=== PATIENT | female | born 1975 | race Caucasian/White ===

== ENCOUNTER 2016-07-12 16:02 | Emergency (ER) | payer OTHER ==
[2016-07-12 17:47] LABS: Hematocrit 50 % (35-47); Hemoglobin 16.3 g/dl (12.0-16.0); Mean Corpuscular HGB Conc 33 g/dl (31-36); Mean Corpuscular Hemoglobin 28 pg (27-31); Mean Corpuscular Volume 85 fL (80-97); Mean Platelet Volume 9 um3 (7.4-10.4); Red Blood Count 5.81 10^6/ul (4.0-5.4); Red Cell Distribution Width 16 % (10.5-15); White Blood Count 10.7 10^3/ul (3.5-10.8)
[2016-07-12 17:54] LABS: ALT 14 U/L (7-52); AST 24 U/L (13-39); Albumin 4.9 g/dL (3.2-5.2); Alkaline Phosphatase 53 U/L (34-104); Anion Gap 10 mmol/L (2-11); BUN/Creatinine Ratio 17.6 (8-20); Blood Urea Nitrogen 15 mg/dL (6-24); C Reactive Protein < 1.00 mg/L (< 5.00); CO2 Carbon Dioxide 26 mmol/L (22-32); Calcium 9.6 mg/dL (8.6-10.3); Chloride 92 mmol/L (101-111); EGFR African American 95.8 (>60); EGFR Non-African American 74.5 (>60); Globulin 3.6 g/dL (2-4); Glucose 85 mg/dL (70-100); Lipase 14 U/L (11.0-82.0); Sodium 128 mmol/L (133-145); Total Protein 8.5 g/dL (6.4-8.9)
[2016-07-12] MEDS ORDERED: NS 0.9% 1000 ML* 1,000 ML IV ONE ×2 (17:57→20:15)
[2016-07-12] MEDS ORDERED: Metoclopramide IV* 5 MG/ML 2 ML VIAL IV ONE (17:57)
[2016-07-12 20:31] LABS: Magnesium 1.7 mg/dL (1.9-2.7)
[2016-07-12] MEDS ORDERED: Magnesium Sulfate 1 GM IV* 1 GM/100 ML BAG IV ONE (20:55)
[2016-07-12 21:19] VITALS: BP 101/79
--- NOTE | 2016-07-13 23:35 | ED ---
Nikky Flores Erika, scribed for Ministerio Kwong MD on 07/12/16 at 1854 . GI/ HPI - HPI Summary HPI Summary: Patient is a 41-year-old female presenting to the ED with a CC of nausea and vomiting since 07/08/2016. She reports that she has been unable to tolerate PO intake in this time. Symptoms were not alleviated by Zofran. Pt states she has not urinated today. She denies myalgias. Hx MEN2A. - History of Current Complaint Chief Complaint: EDNauseaVomitDiarrh Time Seen by Provider: 07/12/16 17:50 Stated Complaint: VOMITTING Hx Obtained From: Patient Onset/Duration: Started Days Ago, Atraumatic, Still Present Timing: Constant Severity: Moderate Associated Signs and Symptoms: Positive: Nausea, Vomiting, Change in Appetite Aggravating Factor(s): Nothing Alleviating Factor(s): Nothing - Additional Pertinent History Primary Care Physician: TRAE - Allergy/Home Medications Allergies/Adverse Reactions: Allergies Allergy/AdvReac Type Severity Reaction Status Date / Time Metronidazole [From Flagyl] AdvReac Intermediate Pain Verified 05/27/15 14:43 PMH/Surg Hx/FS Hx/Imm Hx Endocrine/Hematology History: Reports: Hx Thyroid Disease, Other Endocrine/ Hematological Disorders - pheochromocytoma, multiple endocrine neoplasia type 2a (mother) Denies: Hx Diabetes, Hx Anemia Cardiovascular History: Denies: Hx Congestive Heart Failure, Hx Hypertension, Hx Pacemaker/ICD Respiratory History: Denies: Hx Asthma GI History: Reports: Other GI Disorders - Hx of gastroenteritis Denies: Hx Crohn's Disease, Hx Diverticulosis, Hx Gall Bladder Disease, Hx Gastroesophageal Reflux Disease, Hx Gastrointestinal Bleed, Hx Irritable Bowel, Hx Jaundice, Hx Ulcer History: Denies: Hx Acute Renal Failure, Hx Dialysis, Hx Kidney Infection, Hx Kidney Stones, Hx Renal Disease Musculoskeletal History: Reports: Hx Back Problems - herniated discs Denies: Hx Arthritis, Hx Osteoporosis, Hx Scoliosis Sensory History: Reports: Hx Contacts or Glasses Denies: Hx Hearing Aid Opthamlomology History: Reports: Hx Contacts or Glasses Neurological History: Denies: Hx Headaches, Hx Migraine, Hx Seizures Psychiatric History: Reports: Hx Depression Denies: Hx Anxiety, Hx Panic Disorder - Cancer History Cancer Type, Location and Year: thyroid, age 23. (multi endocrine neoplasic type 2a)MEN2A, age 24 Hx Chemotherapy: No Hx Radiation Therapy: No - Surgical History Surgery Procedure, Year, and Place: . thyroidectomy. parathyroidectomy. left and right adrenal gland removed. lymph node dissections. right adrenal gland removed. right knee surgery Hx Anesthesia Reactions: No - Immunization History Date of Tetanus Vaccine: PT STATES UNSURE Date of Influenza Vaccine: Fall 2014 Infectious Disease History: Reports: Hx Clostridium Difficile Denies: Hx Hepatitis, Hx of Known/Suspected MRSA, Hx Shingles, Hx Tuberculosis, Traveled Outside the [place] in Last 30 Days - Family History Known Family History: Positive: Other - multiple endocrine neoplasia type 2a ( mother) Negative: Cardiac Disease, Hypertension, Diabetes - Social History Alcohol Use: None Hx Substance Use: No Substance Use Type: Reports: None Hx Tobacco Use: Yes Smoking Status (MU): Former Smoker Type: Cigarettes Have You Smoked in the Last Year: No Review of Systems Positive: Vomiting, Nausea Genitourinary: Other - decreased urination Negative: Myalgia All Other Systems Reviewed And Are Negative: Yes Physical Exam Triage Information Reviewed: Yes Vital Signs On Initial Exam: Initial Vitals Temp Pulse Resp BP Pulse Ox 98.2 F 80 18 110/79 99 07/12/16 16:10 07/12/16 16:10 07/12/16 16:10 07/12/16 16:10 07/12/16 16:10 Vital Signs Reviewed: Yes Appearance: Positive: Well-Appearing, No Pain Distress Skin: Positive: Warm, Skin Color Reflects Adequate Perfusion, Dry Head/Face: Positive: Normal Head/Face Inspection Eyes: Positive: Normal ENT: Positive: Other - Dry oral mucosa Neck: Positive: Supple, Nontender Respiratory/Lung Sounds: Positive: Clear to Auscultation, Breath Sounds Present Cardiovascular: Positive: RRR Abdomen Description: Positive: Nontender, Soft Bowel Sounds: Positive: Present Musculoskeletal: Positive: Normal Neurological: Positive: Normal Psychiatric: Positive: Affect/Mood Appropriate Diagnostics - Vital Signs Vital Signs Temp Pulse Resp BP Pulse Ox 07/12/16 16:10 98.2 F 80 18 110/79 99 - Laboratory Lab Results: Lab Results 07/12/16 Range/Units 17:35 WBC 10.7 (3.5-10.8) 10^3/ul RBC 5.81 H (4.0-5.4) 10^6/ul Hgb 16.3 H (12.0-16.0) g/dl Hct 50 H (35-47) % MCV 85 (80-97) fL MCH 28 (27-31) pg MCHC 33 (31-36) g/dl RDW 16 H (10.5-15) % Plt Count 253 (150-450) 10^3/ul MPV 9 (7.4-10.4) um3 Neut % (Auto) 75.3 (38-83) % Lymph % (Auto) 16.1 L (25-47) % [place] % (Auto) 5.9 (1-9) % Eos % (Auto) 1.3 (0-6) % Baso % (Auto) 1.4 (0-2) % Absolute Neuts (auto) 8.0 H (1.5-7.7) 10^3/ul Absolute Lymphs (auto) 1.7 (1.0-4.8) 10^3/ul Absolute Monos (auto) 0.6 (0-0.8) 10^3/ul Absolute Eos (auto) 0.1 (0-0.6) 10^3/ul Absolute Basos (auto) 0.2 (0-0.2) 10^3/ul Absolute Nucleated RBC 0 10^3/ul Nucleated RBC % 0 Result Diagrams: 07/12/16 17:35 07/12/16 17:30 Lab Statement: Any lab studies that have been ordered have been reviewed, and results considered in the medical decision making process. - EKG 17:05 Cardiac Rate: NL - at 73 bpm EKG Rhythm: Sinus Rhythm EKG Interpretation: Diffuse T wave inversions 20:31 EKG Interpretation: Borderline sinus bradycardia at 63 bpm. Diffuse TWI Re-Evaluation - Re-Evaluation First Eval Re-Evaluation Time: 20:58 Comment: Discussed EKG and blood work GIGU Course/Dx - Course Course Of Treatment: Ciaran Joaquin presented with N/V for several days and was concerned about hypocalcemia that she has had before although she admitted that she had not had any tetany-type symptoms. She was found to have diffuse inverted T-waves on ecg. Her TSH was high and hypothyroidism can cause inverted T's as well as N/V. She has been keeping her synthroid down so I asked her to increase it and F/U with her PMD. - Diagnoses Provider Diagnoses: Hypothyroidism - Physician Notifications Discussed Care Of Patient With: Dr. Quinones (cardiology) at 20:05 - discussed patient care. Dr. Pride (hospitalist) at 20:30 - discussed case and pt EKGs. Pt does not require admission at this time Discharge - Discharge Plan Condition: Stable Disposition: HOME Patient Education Materials: Hypothyroidism (ED) Referrals: Romero Francis MD [Medical Doctor] - Additional Instructions: Please take 2 levothyroxine on Friday and 2 on Friday. Follow up with Dr. Francis on Friday. The documentation as recorded by the Nikky garcia Erika accurately reflects the service I personally performed and the decisions made by me, Ministerio Kwong MD.
== END 2016-07-12 21:19 | disposition home or self-care (01) ==
LOC: ED 16:02
DX: E03.9 Hypothyroidism, unspecified (principal); R11.2 Nausea with vomiting, unspecified; Z87.891 Personal history of nicotine dependence
CPT/HCPCS: 36415; 80053; 83605; 83690; 83735; 84439; 84443; 84484; 85025; 86140; 93005; 96361; 96374; 99283; J2765; J3475

== ENCOUNTER 2017-05-27 15:14 | Observation (INO) | payer OTHER ==
[2017-05-27 16:19] LABS: ABS Basophils 0.2 10^3/ul (0-0.2); ABS Eosinophils 0.1 10^3/ul (0-0.6); ABS Lymphocytes 1.8 10^3/ul (1.0-4.8); ABS Monocytes 0.6 10^3/ul (0-0.8); ABS Neutrophils 10.6 10^3/ul (1.5-7.7); ABS Nucleated RBC 0 10^3/ul; Eosinophil % 0.5 % (0-6); Hematocrit 35 % (35-47); Hemoglobin 11.6 g/dl (12.0-16.0); Mean Corpuscular HGB Conc 33 g/dl (31-36); Mean Corpuscular Hemoglobin 29 pg (27-31); Mean Corpuscular Volume 86 fL (80-97); Mean Platelet Volume 7 um3 (7.4-10.4); Nucleated Red Blood Cells % 0; Platelet Count 496 10^3/ul (150-450); Red Blood Count 4.06 10^6/ul (4.0-5.4); Red Cell Distribution Width 14 % (10.5-15); White Blood Count 13.2 10^3/ul (3.5-10.8)
[2017-05-27 16:27] LABS: EGFR Non-African American 108.6 (>60)
--- NOTE | 2017-05-27 16:37 | RAD ---
INDICATION: RIGHT side flank pain. COMPARISON: May 27, [address] June 24, 2012 chest radiograph. TECHNIQUE: Dual energy PA and routine lateral views of the chest were obtained. REPORT: Elevated lung volumes and rarefaction of the interstitial markings. LEFT nipple shadow noted. Clear lungs and pleural spaces. Negative for pneumothorax. The heart, pulmonary vasculature, and mediastinal contours are unremarkable. Upper abdominal surgical clips. Negative for free air beneath the diaphragm. No suspicious osseous lesions evident. IMPRESSION: Stigmata of obstructive lung disease. No acute pulmonary or cardiac process evident.
[2017-05-27] MEDS ORDERED: Morphine INJ* 4 MG/ML 1 ML CARPUJECT IV ONE (17:34)
[2017-05-27] MEDS ORDERED: Ondansetron INJ* 2 MG/ML VIAL IV ONE (17:36)
[2017-05-27] MEDS ORDERED: methylPREDNISolone 125 MG* 2 ML VIAL IV ONE (18:00)
[2017-05-27 18:01] LABS: Urine Appearance Clear; Urine Blood Negative (Negative); Urine Color Straw; Urine Ketones Negative (Negative); Urine Protein Negative (Negative); Urine Specific Gravity 1.005 (1.010-1.030); Urine Urobilinogen Negative (Negative)
[2017-05-27] MEDS ORDERED: HYDROmorphone INJ* 2 MG/ML CARPUJECT SYRINGE IV SLOW PU ONE ×2 (18:39→20:18)
[2017-05-27] MEDS ORDERED: Iohexol 300* (CONTRAST) 10 ML SDV IV ONE (18:39)
--- NOTE | 2017-05-27 19:25 | RAD ---
INDICATION: Pain post embolization of liver lesions one week ago. MEN 2 syndrome. COMPARISON: May 27, 2015 MRI. TECHNIQUE: Multidetector CT images were obtained from the lung bases to the ischial tuberosities with 55.2 mL Omnipaque 300 IV and oral contrast. Multiplanar reformation. REPORT: Unremarkable visualized inferior thorax. Patent portal, superior mesenteric, and splenic veins. The liver measures 19 cm cephalocaudal. Multiple hypodense lesions at the RIGHT hepatic lobe with dominant 1.1 x 1.7 cm lesion at the RIGHT posterior hepatic segment reference image 14. The lesions are new or increased in size compared with the 2016 exam. Negative for biliary dilatation. Partially distended gallbladder is remarkable for mural thickening and small volume of pericholecystic fluid. No CT conspicuous gallstones. No CT abnormality of the pancreas or spleen. Negative for CT abnormality of the upper GI, small bowel, appendix visualized along the RIGHT pelvic sidewall, or colon. Minimal free fluid at the dependent pelvis. Negative for free air or hernias. Negative for adrenal lesions. Surgical clips at the level of the nonvisualized adrenal glands corresponding with prior adrenalectomy. Unremarkable kidneys with symmetric nephrograms and pyelograms. Unremarkable nondilated ureters and urinary bladder as well as the retroverted RIGHT deviated uterus and adnexal regions. Negative for lymphadenopathy. Unremarkable abdominal aorta and normally distended inferior vena cava. Negative for suspicious osseous lesions. IMPRESSION: 1. Mildly enlarged liver with multiple hypodense lesions at the RIGHT hepatic lobe with increase in size and number compared with the 2016 exam. 2. Partially distended gallbladder is remarkable for mural thickening and small volume of pericholecystic fluid. No CT conspicuous gallstones. No conspicuous gallstones visualized. Consider CT occult cholelithiasis as well as a calculus cholecystitis. Correlate with clinical assessment and consider RIGHT upper quadrant ultrasound for further assessment.
--- NOTE | 2017-05-27 20:43 | RAD ---
Indication: 1 week post liver embolization for neoplastic lesions. Gallbladder wall thickening on CT without gallbladder distention. Comparison: CT of the same date. Technique: Limited RIGHT upper quadrant ultrasound. Report: Appropriate direction flow documented in the portal and hepatic veins. Arterial flow documented at the proximal intrahepatic segment of the hepatic artery with normal waveform. 18 cm liver is mildly heterogeneous in echogenicity. Refer to CT of the same date for description of focal hepatic lesions. Negative for intrahepatic biliary dilatation. 5.2 mm common bile duct. No stones visualized within the common bile duct. Partially distended gallbladder is remarkable for diffuse wall thickening measuring up to 7.2 mm. Negative for cholelithiasis or visualized biliary sludge. Positive for sonographic Rojas's sign. Small volume of pericholecystic fluid noted based on correlation with CT. Visualized pancreas without ductal dilatation. Negative for obstructive uropathy of the RIGHT kidney. IMPRESSION: Significant diffuse gallbladder wall thickening, trace pericholecystic fluid, and positive sonographic Rojas's sign without significant gallbladder distention or cholelithiasis. Given recent hepatic embolization the constellation of findings is concerning for ischemic cholecystitis.
[2017-05-27 21:05] LABS: ABS Basophils 0.1 10^3/ul (0-0.2); ABS Eosinophils 0 10^3/ul (0-0.6); ABS Monocytes 0.2 10^3/ul (0-0.8); ABS Neutrophils 13.3 10^3/ul (1.5-7.7); ABS Nucleated RBC 0 10^3/ul; Eosinophil % 0.3 % (0-6); Hematocrit 35 % (35-47); Hemoglobin 11.7 g/dl (12.0-16.0); Lymphocyte % 6.7 % (25-47); Mean Corpuscular HGB Conc 33 g/dl (31-36); Mean Corpuscular Hemoglobin 29 pg (27-31); Mean Corpuscular Volume 86 fL (80-97); Mean Platelet Volume 7 um3 (7.4-10.4); Nucleated Red Blood Cells % 0; Platelet Count 479 10^3/ul (150-450); Red Blood Count 4.11 10^6/ul (4.0-5.4); Red Cell Distribution Width 14 % (10.5-15); White Blood Count 14.7 10^3/ul (3.5-10.8)
[2017-05-27 21:17] LABS: EGFR Non-African American 115.1 (>60)
[2017-05-27] MEDS ORDERED: LORazepam INJ* 2 MG/ML 1 ML VIAL IV PRN (21:20)
[2017-05-27] MEDS ORDERED: Ondansetron INJ* 2 MG/ML VIAL IV PRN (21:20)
[2017-05-27] MEDS ORDERED: Albuterol 2.5 MG/3 ML NEB.SOL* (0.083%) INH PRN (21:20)
[2017-05-27] MEDS ORDERED: Acetaminophen SUPP* 650 MG SUPP PR PRN (21:20)
[2017-05-27] MEDS ORDERED: oxyCODONE/Acetamin 5/325 MG* TAB PO ONE (21:37)
[2017-05-27] MEDS: fentaNYL* 50 MCG/ML 2 ML VIAL (100 MCG VIAL) IV SLOW PU PRN (22:21)
--- NOTE | 2017-05-27 22:51 | ED ---
Gurinder Flores Stephanie, scribed for Candi Geren MD on 05/27/17 at 1945 . Abdominal Pain/Female - HPI Summary HPI Summary: The pt is a 42 y/o F with hx MEN2a s/p thyroidectomy, parathyroidectomy and bilateral adrenalectomy for bilateral pheochromocytomas,on replacement fludricortisone and calcitriol and Tums calcium, presenting to the ED with severe RUQ abdominal pain that began last night, 05/26/16. She had a liver embolization procedure on May 09, 2017 at [facility] to cut off blood supply to tumors in the liver. Pt was pain free after the procedure and was well at home, until last pm when she had the sudden onset of the RUQ pain. The embolization was done through the right femoral artery. Pt has seen Dr. Francis for her MEN2a (last approximately 2 years ago). She had her surgeries at [facility], and was then referred by [facility] to [facility], where she sees the lithopress operator, Dr. El. Dr. El's coverage at [facility], Dr. Chey Coyle, was contacted at [facility], upon pt's presentation and Dr. Coyle states that pt's procedure was done by Dr. Shae Gomez, in interventional radiology at [facility]. Dr. Coyle agrees with stress steroids, and calcium supplementation as needed. Dr. Coyle did not know the dx of the "liver tumors" and could not access pt's records at the time we spoke with her. These tumors were not biopsied per pt. - History of Current Complaint Chief Complaint: EDGeneral Stated Complaint: RT SIDE ABD PAIN Time Seen by Provider: 05/27/17 17:32 Hx Obtained From: Patient, Family/Gear Shaper - , Other: - Dr. Coyle, endocrine fellow at [facility] ?: No Onset/Duration: Sudden Onset, Lasting Days - 1 Timing: Constant Severity Initially: Severe Severity Currently: Severe Pain Intensity: 10 Pain Scale Used: 0-10 Numeric Location: Discrete At: RUQ Radiates: No Character: Dull Aggravating Factor(s): Movement Alleviating Factor(s): Nothing Associated Signs and Symptoms: Negative: Fever Allergies/Adverse Reactions: Allergies Allergy/AdvReac Type Severity Reaction Status Date / Time Metronidazole [From Flagyl] AdvReac Intermediate Pain Verified 05/27/17 15:48 Home Medications: Home Medications Hydrocortisone [Cortef] 10 mg PO QPM 05/27/17 [History Confirmed 05/27/17] Hydrocortisone [Cortef] 20 mg PO QAM 05/27/17 [History Confirmed 05/27/17] Levothyroxine TAB* [Synthroid TAB*] 137 mcg PO DAILY 05/27/17 [History Confirmed 05/27/17] PMH/Surg Hx/FS Hx/Imm Hx Previously Healthy: No Endocrine/Hematology History: Reports: Hx Thyroid Disease, Other Endocrine/ Hematological Disorders - pheochromocytoma, multiple endocrine neoplasia type 2a Denies: Hx Diabetes, Hx Anemia Cardiovascular History: Denies: Hx Congestive Heart Failure, Hx Hypertension, Hx Pacemaker/ICD Respiratory History: Denies: Hx Asthma GI History: Denies: Hx Crohn's Disease, Hx Diverticulosis, Hx Gall Bladder Disease, Hx Gastroesophageal Reflux Disease, Hx Gastrointestinal Bleed, Hx Irritable Bowel, Hx Jaundice, Hx Ulcer History: Denies: Hx Acute Renal Failure, Hx Dialysis, Hx Kidney Infection, Hx Kidney Stones, Hx Renal Disease Musculoskeletal History: Reports: Hx Back Problems - herniated discs Denies: Hx Arthritis, Hx Osteoporosis, Hx Scoliosis Sensory History: Reports: Hx Contacts or Glasses Denies: Hx Hearing Aid Opthamlomology History: Reports: Hx Contacts or Glasses Neurological History: Denies: Hx Headaches, Hx Migraine, Hx Seizures Psychiatric History: Reports: Hx Depression Denies: Hx Anxiety, Hx Panic Disorder - Cancer History Cancer Type, Location and Year: thyroid, age 23. multi endocrine neoplasia type 2a,(MEN2A), age 24 Hx Chemotherapy: No Hx Radiation Therapy: No - Surgical History Surgery Procedure, Year, and Place: . thyroidectomy. parathyroidectomy. left and right adrenal gland removed. lymph node dissections. right knee surgery Hx Anesthesia Reactions: No - Immunization History Date of Tetanus Vaccine: PT STATES UNSURE Date of Influenza Vaccine: Fall 2014 Infectious Disease History: Yes Infectious Disease History: Reports: Hx Clostridium Difficile Denies: Hx Hepatitis, Hx of Known/Suspected MRSA, Hx Shingles, Hx Tuberculosis, Traveled Outside the [place] in Last 30 Days - Family History Known Family History: Positive: Other - multiple endocrine neoplasia type 2a ( mother) Negative: Cardiac Disease, Hypertension, Diabetes - Social History Occupation: Unemployed Lives: With Family Alcohol Use: None Hx Substance Use: No Substance Use Type: Reports: None Hx Tobacco Use: Yes Smoking Status (MU): Former Smoker Type: Cigarettes Have You Smoked in the Last Year: No Review of Systems Negative: Fever Cardiovascular: Negative Respiratory: Negative Positive: Abdominal Pain Genitourinary: Negative Skin: Negative Neurological: Negative Psychological: Normal All Other Systems Reviewed And Are Negative: Yes Physical Exam - Summary Physical Exam Summary: Appearance: Ill-appearing, severe pain distress, Well-nourished Skin: Warm, color reflects adequate perfusion Head: Normal Head/Face inspection Eyes: Conjunctiva clear ENT: Normal inspection Neck: Supple, no nodes, no JVD. Respiratory: Lungs clear, Normal breath sounds, no respiratory distress Cardio: RRR, No murmur, pulses normal, brisk capillary refill Abdomen: Exquisitely Tender to palpation RUQ, + Rojas's sign, no masses Bowel sounds: present Musculoskeletal: Strength Intact/ ROM intact. No calf tenderness. No edema. right femoral artery procedure site without ecchymosis or tenderness. Femoral pulses 2+ bilat Neuro: Alert, muscle tone normal, facial symmetry, speech normal, sensory/motor intact Psychological: Normal Triage Information Reviewed: Yes Vital Signs On Initial Exam: Initial Vitals Temp Pulse Resp BP Pulse Ox 98.9 F 86 18 127/79 99 05/27/17 15:20 05/27/17 15:20 05/27/17 15:20 05/27/17 15:20 05/27/17 15:20 Vital Signs Reviewed: Yes - Kash Coma Scale Coma Scale Total: 15 Diagnostics - Vital Signs Vital Signs Temp Pulse Resp BP Pulse Ox 05/27/17 18:48 72 100 05/27/17 18:44 18 05/27/17 18:30 118/88 05/27/17 18:13 109/87 05/27/17 17:37 18 05/27/17 16:53 78 99 05/27/17 16:37 73 143/82 99 05/27/17 16:04 80 98 05/27/17 16:02 132/88 05/27/17 15:20 98.9 F 86 18 127/79 99 - Laboratory Lab Results: Lab Results 05/27/17 05/27/17 05/27/17 Range/Units 15:50 15:50 15:50 WBC 13.2 H (3.5-10.8) 10^3/ul RBC 4.06 (4.0-5.4) 10^6/ul Hgb 11.6 L (12.0-16.0) g/dl Hct 35 (35-47) % MCV 86 (80-97) fL MCH 29 (27-31) pg MCHC 33 (31-36) g/dl RDW 14 (10.5-15) % Plt Count 496 H (150-450) 10^3/ul MPV 7 L (7.4-10.4) um3 Neut % (Auto) 79.7 (38-83) % Lymph % (Auto) 14.0 L (25-47) % [place] % (Auto) 4.6 (1-9) % Eos % (Auto) 0.5 (0-6) % Baso % (Auto) 1.2 (0-2) % Absolute Neuts (auto) 10.6 H (1.5-7.7) 10^3/ul Absolute Lymphs (auto) 1.8 (1.0-4.8) 10^3/ul Absolute Monos (auto) 0.6 (0-0.8) 10^3/ul Absolute Eos (auto) 0.1 (0-0.6) 10^3/ul Absolute Basos (auto) 0.2 (0-0.2) 10^3/ul Absolute Nucleated RBC 0 10^3/ul Nucleated RBC % 0 Sodium 134 (133-145) mmol/L Potassium 3.9 (3.5-5.0) mmol/L Chloride 100 L (101-111) mmol/L Carbon Dioxide 26 (22-32) mmol/L Anion Gap 8 (2-11) mmol/L BUN 13 (6-24) mg/dL Creatinine 0.61 (0.51-0.95) mg/dL Est GFR ( Amer) 139.7 (>60) Est GFR (Non-Af Amer) 108.6 (>60) BUN/Creatinine Ratio 21.3 H (8-20) Glucose 104 H (70-100) mg/dL Lactic Acid (0.5-2.0) mmol/L Calcium 7.9 L (8.6-10.3) mg/dL Total Bilirubin 0.20 (0.2-1.0) mg/dL AST 25 (13-39) U/L ALT 33 (7-52) U/L Alkaline Phosphatase 63 (34-104) U/L Ammonia 48 (16-53) mol/L Troponin I 0.00 (<0.04) ng/mL Total Protein 6.9 (6.4-8.9) g/dL Albumin 3.8 (3.2-5.2) g/dL Globulin 3.1 (2-4) g/dL Albumin/Globulin Ratio 1.2 (1-3) Urine Color Urine Appearance Urine pH (5-9) Ur Specific [place] (1.010-1.030) Urine Protein (Negative) Urine Ketones (Negative) Urine Blood (Negative) Urine Nitrate (Negative) Urine Bilirubin (Negative) Urine Urobilinogen (Negative) Ur Leukocyte Esterase (Negative) Urine Glucose (Negative) 05/27/17 05/27/17 Range/Units 15:50 17:20 WBC (3.5-10.8) 10^3/ul RBC (4.0-5.4) 10^6/ul Hgb (12.0-16.0) g/dl Hct (35-47) % MCV (80-97) fL MCH (27-31) pg MCHC (31-36) g/dl RDW (10.5-15) % Plt Count (150-450) 10^3/ul MPV (7.4-10.4) um3 Neut % (Auto) (38-83) % Lymph % (Auto) (25-47) % [place] % (Auto) (1-9) % Eos % (Auto) (0-6) % Baso % (Auto) (0-2) % Absolute Neuts (auto) (1.5-7.7) 10^3/ul Absolute Lymphs (auto) (1.0-4.8) 10^3/ul Absolute Monos (auto) (0-0.8) 10^3/ul Absolute Eos (auto) (0-0.6) 10^3/ul Absolute Basos (auto) (0-0.2) 10^3/ul Absolute Nucleated RBC 10^3/ul Nucleated RBC % Sodium (133-145) mmol/L Potassium (3.5-5.0) mmol/L Chloride (101-111) mmol/L Carbon Dioxide (22-32) mmol/L Anion Gap (2-11) mmol/L BUN (6-24) mg/dL Creatinine (0.51-0.95) mg/dL Est GFR ( Amer) (>60) Est GFR (Non-Af Amer) (>60) BUN/Creatinine Ratio (8-20) Glucose (70-100) mg/dL Lactic Acid 1.0 (0.5-2.0) mmol/L Calcium (8.6-10.3) mg/dL Total Bilirubin (0.2-1.0) mg/dL AST (13-39) U/L ALT (7-52) U/L Alkaline Phosphatase (34-104) U/L Ammonia (16-53) mol/L Troponin I (<0.04) ng/mL Total Protein (6.4-8.9) g/dL Albumin (3.2-5.2) g/dL Globulin (2-4) g/dL Albumin/Globulin Ratio (1-3) Urine Color Straw Urine Appearance Clear Urine pH 9.0 (5-9) Ur Specific [place] 1.005 L (1.010-1.030) Urine Protein Negative (Negative) Urine Ketones Negative (Negative) Urine Blood Negative (Negative) Urine Nitrate Negative (Negative) Urine Bilirubin Negative (Negative) Urine Urobilinogen Negative (Negative) Ur Leukocyte Esterase Negative (Negative) Urine Glucose Negative (Negative) Result Diagrams: 05/27/17 20:45 05/27/17 20:45 Lab Statement: Any lab studies that have been ordered have been reviewed, and results considered in the medical decision making process. - Radiology CXR Xray Interpretation: No Acute Changes Radiology Interpretation Completed By: Radiologist - Stigmata of obstructive lung disease. No acute pulmonary or cardiac process evident. - CT Abd/Pel CT Interpretation: No Acute Changes CT Interpretation Completed By: Radiologist - 1. Mildly enlarged liver with multiple hypodense lesions at the RIGHT hepatic lobe with increase in size and number compared with the 2016 exam. 2. Partially distended gallbladder is remarkable for mural thickening and small volume of pericholecystic fluid. No CT conspicuous gallstones. No conspicuous gallstones visualized. Consider CT occult cholelithiasis as well as a calculus cholecystitis. Correlate with clinical assessment and consider RIGHT upper quadrant ultrasound for further assessment. - EKG 15:46 Cardiac Rate: NL EKG Rhythm: Sinus Rhythm - [address] Segment: Non-Specific EKG Interpretation: Nml AVIVCT.Nml QTc,nml [place].No acute changes compared to EKG of 07/12/16 EKG Comparison: No Significant Change Re-Evaluation - Re-Evaluation First Eval Re-Evaluation Time: 18:39 Change: Worse - Pt is in more pain. Second Eval Re-Evaluation Time: 19:38 - ED physician provided results of CT. ED physician discussed with Dr. Thakur and he recommends US gallbladder to eval for ischemic cholecystitis. Change: Unchanged Third Eval Re-Evaluation Time: 20:09 - Discussed care with Dr. Loaiza Change: Unchanged Fourth Eval Re-Evaluation Time: 20:50 - Pt still with pain. Will continue to medicate. Change: Unchanged Fifth Eval Re-Evaluation Time: 21:37 - Pt is still having pain and will be admitted. Will be stabilized for surgery with Dr. Loaiza. Change: Unchanged Abdominal Pain Fem Course/Dx - Course Course Of Treatment: Pt with MEN2a s/p surgeries for all 3 cancers, followed at [facility] ([facility] Status post embolization of liver tumors at [facility] on . Presents w/ acute RUQ abd pain. Most consistent with ischemic cholecystitis. Pt will be admitted to hospitalist. Dr. Francis will consult in AM for MEN2a. Dr. Loaiza will do cholecystectomy after medical condition is optimized. In the ED course, pt's lithopress operator coverage, Dr. Chey Coyle, was contacted. Care was discussed with Dr. Thakur, radiology. Care was discussed with Dr. Loaiza. Care was discussed with Dr. Shae Cooper who discussed with Dr. Romero Francis. Care was discussed with Dr. Fulton. Pt was given SoluMedrol 125mg IV, morphine 4mg, Zofran 4mg IV, dilaudid 1mg x 3 IV and then care was turned over to hospitalist. - Diagnoses Differential Diagnosis: Positive: Bowel Obstruction, Gall Bladder Disease, Other - ischemic gallbladder, complication of embolization of liver lesions, perforated viscous Provider Diagnoses: ischemic cholecystitis, MEN 2A syndrome - Provider Notifications Discussed Care Of Patient With: Shae Cooper - Dr. Francis can see pt in AM. Time Discussed With Above Provider: 20:47 Discharge - Discharge Plan Condition: Stable Disposition: ADMITTED TO [facility] The documentation as recorded by the Gurinder garcia Stephanie accurately reflects the service I personally performed and the decisions made by , Candi Green MD.
[2017-05-27] MEDS: NS 0.9% 1000 ML* 1,000 ML IV SCH (23:10)
[2017-05-27] MEDS: Piperacillin/Tazobac ADVAN(*) 3.375 GM in NS 0.9% 100 ML* 100 ML IVPB SCH (23:34)
--- NOTE | 2017-05-28 00:44 | CONS ---
CC: Loyda Calvert MD * CONSULTATION REPORT: DATE OF CONSULT: 05/27/17 REASON FOR CONSULT: Acalculous cholecystitis. 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 She most recently had a hepatic embolization at [facility] on 05/09/16. This was performed to treat tumors of the liver (she does not know the diagnosis and states these have not been biopsied). She initially was feeling quite well; however, yesterday she began to have right upper quadrant pain and this was quite severe. She notes the pain is worse with movement or pressure at the site and she is better with narcotics. She completed evaluations in the emergency room which included CT scan of the abdomen and pelvis with oral and IV contrast which demonstrated a mildly enlarged liver with multiple hyperdense lesions and a partially distended gallbladder with mural thickening and small bowel and pericholecystic fluid with no stones. An ultrasound evaluation was next performed and this demonstrated findings of diffuse gallbladder wall thickening with trace pericholecystic fluid and a positive sonographic Rojas sign without cholelithiasis which is felt to represent ischemic cholecystitis. The patient is admitted to the hospitalist service and surgical consultation was requested by the emergency room. PAST MEDICAL HISTORY: As above; anxiety, depression, chronic pain, history of C. diff colitis. PAST SURGICAL HISTORY: As above and knee surgery in 2009. MEDICATIONS: 1. Synthroid. 2. Lexapro. 3. Flexeril. 4. Tums. 5. Rocaltrol. 6. Neurontin. 7. Florinef. 8. Ultram. 9. Wellbutrin. ALLERGIES: METRONIDAZOLE. FAMILY HISTORY: Mother and brothers all have MEN2A. SOCIAL HISTORY: Ex-smoker who quit 7 years ago and prior to that smoked less than a pack a day for 13 years. She denies alcohol or drug use. She is . She is unemployed. REVIEW OF SYSTEMS: A 14-point review of systems was completed, significant for the above mentioned, she is otherwise negative. PHYSICAL EXAM: Vital Signs: Temperature 98 degrees, pulse 69, respirations 17 , O2 sat 97% on room air, and blood pressure 104/60. Head is normocephalic and atraumatic. Sclerae anicteric. Mucous membranes are moist. No rhinorrhea. Abdomen has multiple laparoscopic scars, is nondistended. She has a small umbilical hernia. She has tenderness in the right upper quadrant with Rojas sign present. No palpable masses. IMPRESSION: A 42-year-old female with MEN2A, status post recent hepatic embolization with now acalculous cholecystitis. PLAN/RECOMMENDATIONS: Agree with n.p.o. status, IV hydration and IV antibiotics. We will work to arrange for a laparoscopic cholecystectomy on 05/28. [id number]/[facility] #: [id number] MARYAM
--- NOTE | 2017-05-28 01:33 | HP ---
H&P (Free Text) History and Physical: PCP: Sammy Calvert MD Endocrinology: Teri Francis MD Oncology: [facility] Date/Time: 05/27/20162109 CC: abdominal pain HPI: Mrs Joaquin is a 42YO female HX MEN 2a s/p thyroidectomy & B adrenectomies who underwent a hepatic embolization May 09 for metastatic medullary thyroid CA. She did well up until New Year's Day around noon when she began having RUQ abdominal pain which today increased to severe and became associated with N/V, loose stools, subjective F/C, and sweats prompting this evaluation which has revealed acute cholecystitis, suspect ischemic. Jennifer Loaiza MD surgery has consulted and reportedly plans cholecystectomy in the AM. Teri Francis MD endocrinology has also been contacted by ED and agrees to consult in the AM for her endocrinopathies. PMedHx medullary thyroid CA metastatic to liver s/p hepatic embolization 05/09/2017 at [facility] MEN 2a : s/p thyroidectomy : s/p B adrenecties : s/p parathyroidectomy hypothyroidism depression anxiety chronic pain Ambulatory Orders Calcitriol CAP* [Rocaltrol CAP*] 0.5 mcg PO BID 06/25/12 Fludrocortisone Acetate TAB* [Florinef TAB*] 0.1 mg PO DAILY 06/25/12 Calcium Carbonate CHEW TAB* [Tums*] 1,000 mg PO BID 03/10/15 Cyclobenzaprine HCl [Flexeril 5 mg (NF)] 5 mg PO BEDTIME 03/22/16 Escitalopram (NF) [Lexapro 10 mg (NF)] 10 mg PO DAILY 03/22/16 Gabapentin CAP(*) [Neurontin 100 mg CAP(*)] 200 mg PO QAM 03/22/16 Gabapentin CAP(*) [Neurontin 100 mg CAP(*)] 300 mg PO 1200 03/22/16 buPROPion SR TAB* [Wellbutrin SR TAB*] 150 mg PO BID 03/22/16 traMADol TAB* [Ultram*] 50 mg PO QID PRN 03/22/16 Hydrocortisone [Cortef] 10 mg PO QPM 05/27/17 Hydrocortisone [Cortef] 20 mg PO QAM 05/27/17 Levothyroxine TAB* [Synthroid TAB*] 137 mcg PO DAILY 05/27/17 Allergies Metronidazole [From Flagyl] Adverse Reaction (Intermediate, Verified 05/27/17 15 :48) Pain Severe abdominal pain. PSurgHx thyroidectomy B adrenecties parathyroidectomy hepatic embolization May 09, 2017 SocHx: former smoker quit >5years ago, no alcohol or recreational drugs; lives with her ; full code status FamHx: Mother: NEAL rust ROS: as above, otherwise reviewed and all were negative vitals: Vital Signs Temp 36.4 C 05/27/17 23:04 Pulse 67 05/27/17 23:04 Resp 17 05/27/17 23:19 BP 120/80 05/27/17 23:04 Pulse Ox 97 05/27/17 23:04 Intake & Output 05/27/17 05/27/17 05/28/17 11:59 23:59 11:59 Weight 40.823 kg Constitutional: NAD, normally developed, thin white female HEENM: atraumatic; sclera/conjunctiva: anicteric/clear; hearing: clinically intact; oropharynx: clear, mucosa moist Neck: soft tissue: non-tender; thyroid: surgically absent Pulmonary: clear to auscultation bilaterally, good aeration, no accessory muscle use CV: RR/RR, normal S1S2, no carotid bruit, no jugular venous distention, 2+ B DP/ PT, no edema Abdominal: soft, non-distended, moderate RUQ tenderness with voluntary guarding but no rebound/rigidity, normoactive bowel sounds, no hepatosplenomegaly or masses, no costovertebral angle tenderness Musculoskeletal: general: grossly intact; gait: stable Integumental: normal appearance and texture of exposed skin Psychiatric orientation: AA&O to PPS affect: calm mood: cooperative eye contact: good content: reliable responses: timely insight: good Testing: Lab Results 05/27/17 05/27/17 05/27/17 Range/Units 15:50 15:50 15:50 WBC 13.2 H (3.5-10.8) 10^3/ul RBC 4.06 (4.0-5.4) 10^6/ul Hgb 11.6 L (12.0-16.0) g/dl Hct 35 (35-47) % MCV 86 (80-97) fL MCH 29 (27-31) pg MCHC 33 (31-36) g/dl RDW 14 (10.5-15) % Plt Count 496 H (150-450) 10^3/ul MPV 7 L (7.4-10.4) um3 Neut % (Auto) 79.7 (38-83) % Lymph % (Auto) 14.0 L (25-47) % [place] % (Auto) 4.6 (1-9) % Eos % (Auto) 0.5 (0-6) % Baso % (Auto) 1.2 (0-2) % Absolute Neuts (auto) 10.6 H (1.5-7.7) 10^3/ul Absolute Lymphs (auto) 1.8 (1.0-4.8) 10^3/ul Absolute Monos (auto) 0.6 (0-0.8) 10^3/ul Absolute Eos (auto) 0.1 (0-0.6) 10^3/ul Absolute Basos (auto) 0.2 (0-0.2) 10^3/ul Absolute Nucleated RBC 0 10^3/ul Nucleated RBC % 0 Sodium 134 (133-145) mmol/L Potassium 3.9 (3.5-5.0) mmol/L Chloride 100 L (101-111) mmol/L Carbon Dioxide 26 (22-32) mmol/L Anion Gap 8 (2-11) mmol/L BUN 13 (6-24) mg/dL Creatinine 0.61 (0.51-0.95) mg/dL Est GFR ( Amer) 139.7 (>60) Est GFR (Non-Af Amer) 108.6 (>60) BUN/Creatinine Ratio 21.3 H (8-20) Glucose 104 H (70-100) mg/dL Lactic Acid (0.5-2.0) mmol/L Calcium 7.9 L (8.6-10.3) mg/dL Ionized Calcium (4.65-5.28) mg/dL Total Bilirubin 0.20 (0.2-1.0) mg/dL AST 25 (13-39) U/L ALT 33 (7-52) U/L Alkaline Phosphatase 63 (34-104) U/L Ammonia 48 (16-53) mol/L Troponin I 0.00 (<0.04) ng/mL Total Protein 6.9 (6.4-8.9) g/dL Albumin 3.8 (3.2-5.2) g/dL Globulin 3.1 (2-4) g/dL Albumin/Globulin Ratio 1.2 (1-3) Urine Color Urine Appearance Urine pH (5-9) Ur Specific [place] (1.010-1.030) Urine Protein (Negative) Urine Ketones (Negative) Urine Blood (Negative) Urine Nitrate (Negative) Urine Bilirubin (Negative) Urine Urobilinogen (Negative) Ur Leukocyte Esterase (Negative) Urine Glucose (Negative) 05/27/17 05/27/17 05/27/17 Range/Units 15:50 17:20 20:45 WBC (3.5-10.8) 10^3/ul RBC (4.0-5.4) 10^6/ul Hgb (12.0-16.0) g/dl Hct (35-47) % MCV (80-97) fL MCH (27-31) pg MCHC (31-36) g/dl RDW (10.5-15) % Plt Count (150-450) 10^3/ul MPV (7.4-10.4) um3 Neut % (Auto) (38-83) % Lymph % (Auto) (25-47) % [place] % (Auto) (1-9) % Eos % (Auto) (0-6) % Baso % (Auto) (0-2) % Absolute Neuts (auto) (1.5-7.7) 10^3/ul Absolute Lymphs (auto) (1.0-4.8) 10^3/ul Absolute Monos (auto) (0-0.8) 10^3/ul Absolute Eos (auto) (0-0.6) 10^3/ul Absolute Basos (auto) (0-0.2) 10^3/ul Absolute Nucleated RBC 10^3/ul Nucleated RBC % Sodium 135 (133-145) mmol/L Potassium 3.8 (3.5-5.0) mmol/L Chloride 99 L (101-111) mmol/L Carbon Dioxide 28 (22-32) mmol/L Anion Gap 8 (2-11) mmol/L BUN 10 (6-24) mg/dL Creatinine 0.58 (0.51-0.95) mg/dL Est GFR ( Amer) 148.1 (>60) Est GFR (Non-Af Amer) 115.1 (>60) BUN/Creatinine Ratio 17.2 (8-20) Glucose 109 H (70-100) mg/dL Lactic Acid 1.0 (0.5-2.0) mmol/L Calcium 7.8 L (8.6-10.3) mg/dL Ionized Calcium (4.65-5.28) mg/dL Total Bilirubin (0.2-1.0) mg/dL AST (13-39) U/L ALT (7-52) U/L Alkaline Phosphatase (34-104) U/L Ammonia (16-53) mol/L Troponin I (<0.04) ng/mL Total Protein (6.4-8.9) g/dL Albumin (3.2-5.2) g/dL Globulin (2-4) g/dL Albumin/Globulin Ratio (1-3) Urine Color Straw Urine Appearance Clear Urine pH 9.0 (5-9) Ur Specific [place] 1.005 L (1.010-1.030) Urine Protein Negative (Negative) Urine Ketones Negative (Negative) Urine Blood Negative (Negative) Urine Nitrate Negative (Negative) Urine Bilirubin Negative (Negative) Urine Urobilinogen Negative (Negative) Ur Leukocyte Esterase Negative (Negative) Urine Glucose Negative (Negative) 05/27/17 05/27/17 05/27/17 Range/Units 20:45 20:45 20:45 WBC 14.7 H (3.5-10.8) 10^3/ul RBC 4.11 (4.0-5.4) 10^6/ul Hgb 11.7 L (12.0-16.0) g/dl Hct 35 (35-47) % MCV 86 (80-97) fL MCH 29 (27-31) pg MCHC 33 (31-36) g/dl RDW 14 (10.5-15) % Plt Count 479 H (150-450) 10^3/ul MPV 7 L (7.4-10.4) um3 Neut % (Auto) 90.9 H (38-83) % Lymph % (Auto) 6.7 L (25-47) % [place] % (Auto) 1.5 (1-9) % Eos % (Auto) 0.3 (0-6) % Baso % (Auto) 0.6 (0-2) % Absolute Neuts (auto) 13.3 H (1.5-7.7) 10^3/ul Absolute Lymphs (auto) 1.0 (1.0-4.8) 10^3/ul Absolute Monos (auto) 0.2 (0-0.8) 10^3/ul Absolute Eos (auto) 0 (0-0.6) 10^3/ul Absolute Basos (auto) 0.1 (0-0.2) 10^3/ul Absolute Nucleated RBC 0 10^3/ul Nucleated RBC % 0 Sodium (133-145) mmol/L Potassium (3.5-5.0) mmol/L Chloride (101-111) mmol/L Carbon Dioxide (22-32) mmol/L Anion Gap (2-11) mmol/L BUN (6-24) mg/dL Creatinine (0.51-0.95) mg/dL Est GFR ( Amer) (>60) Est GFR (Non-Af Amer) (>60) BUN/Creatinine Ratio (8-20) Glucose (70-100) mg/dL Lactic Acid 0.5 (0.5-2.0) mmol/L Calcium (8.6-10.3) mg/dL Ionized Calcium 3.76 L (4.65-5.28) mg/dL Total Bilirubin (0.2-1.0) mg/dL AST (13-39) U/L ALT (7-52) U/L Alkaline Phosphatase (34-104) U/L Ammonia (16-53) mol/L Troponin I (<0.04) ng/mL Total Protein (6.4-8.9) g/dL Albumin (3.2-5.2) g/dL Globulin (2-4) g/dL Albumin/Globulin Ratio (1-3) Urine Color Urine Appearance Urine pH (5-9) Ur Specific [place] (1.010-1.030) Urine Protein (Negative) Urine Ketones (Negative) Urine Blood (Negative) Urine Nitrate (Negative) Urine Bilirubin (Negative) Urine Urobilinogen (Negative) Ur Leukocyte Esterase (Negative) Urine Glucose (Negative) ECG, personally reviewed: NSR rate 75, no ischemia CXR, personally reviewed: IMPRESSION: Stigmata of obstructive lung disease. No acute pulmonary or cardiac process evident. CT chest WO, personally reviewed: IMPRESSION: 1. Mildly enlarged liver with multiple hypodense lesions at the RIGHT hepatic lobe with increase in size and number compared with the 2016 exam. 2. Partially distended gallbladder is remarkable for mural thickening and small volume of pericholecystic fluid. No CT conspicuous gallstones. No conspicuous gallstones visualized. Consider CT occult cholelithiasis as well as acalculus cholecystitis. Correlate with clinical assessment and consider RIGHT upper quadrant ultrasound for further assessment. US RUQ: IMPRESSION: Significant diffuse gallbladder wall thickening, trace pericholecystic fluid, and positive sonographic Rojas's sign without significant gallbladder distention or cholelithiasis. Given recent hepatic embolization the constellation of findings is concerning for ischemic cholecystitis. Impression: 42F HX MEN 2a, medullary thyroid CA metastatic to liver, & 2016 hepatic embolization at [facility] presenting with ischemic cholecystitis DIAGNOSIS & PLAN Primary ischemic cholecystitis : NPO : IV piperacillin/tazobactam : pain control : Jennifer Loaiza MD surgery evaluated in ED : Teri Francis MD endocrinology consulted by ED, will evaluate in AM : supportive care s/p B adrenectomies for MEN 2a : stress dose hydrocortisone, given initial bolus of methylprednisolone in ED Secondary MEN 2a : medullary thyroid CA metastatic to liver s/p hepatic embolization 05/09/2017 at [facility] : s/p thyroidectomy : s/p B adrenecties : s/p parathyroidectomy : Teri Francis MD consulted hypothyroidism : continue levothyroxine IV at 1/2 PO dose depression/anxiety : hold medications until taking PO Admission Rational: inpatient for surgical management of ischemic cholecystitis DVTp: SCDs & heparin SQ Code Status: full HCP:
[2017-05-28] MEDS: Hydrocortisone INJ* 100 MG VIAL IV SCH ×3 (01:56→17:52)
[2017-05-28] MEDS: fentaNYL* 50 MCG/ML 2 ML VIAL (100 MCG VIAL) IV SLOW PU PRN ×2 (01:59→05:57)
[2017-05-28] MEDS: Piperacillin/Tazobac ADVAN(*) 3.375 GM in NS 0.9% 100 ML* 100 ML IVPB SCH ×3 (06:00→22:07)
[2017-05-28] MEDS: Levothyroxine INJ* 100 MCG/5 ML VIAL IV SCH (06:01)
[2017-05-28] MEDS: NS 0.9% 1000 ML* 1,000 ML IV SCH ×3 (07:34→19:14)
[2017-05-28] MEDS ORDERED: Propofol* 10 MG/ML 20 ML BTL IV PUSH ONE (08:07)
[2017-05-28] MEDS ORDERED: Atracurium* 10 MG/ML 10 ML VIAL ONE (08:08)
[2017-05-28] MEDS ORDERED: fentaNYL* 50 MCG/ML 2 ML VIAL (100 MCG VIAL) ONE ×3 (08:08→11:50)
[2017-05-28] MEDS ORDERED: Bupivacaine 0.5% SDV PF* 10-30ML VIAL ONE (08:19)
[2017-05-28] MEDS ORDERED: Hydrocortisone INJ* 100 MG VIAL ONE (08:25)
[2017-05-28] MEDS: Pantoprazole IV* 40 MG IV SCH (08:31)
--- NOTE | 2017-05-28 08:39 | PN ---
Subjective - Subjective Reason for Note: Consultation Note History: Endocrine consultation: This is a patient I have followed in the past at my Endocrine Office for MEN2A - though not in the office for a couple of years. She presents with acute cholecystitis following embolization of her liver metastases on 05/09/2017. Her presentation is documented in Dr. Fulton's admitting history and physical which are part of the electronic medical record. She has had 2 days of acute, severe, right upper quadrant pain. She notes, she had no such pain following her hepatic embolization. 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 Pheochromocytoma (Chronic) D35.00 Thyroid cancer, medullary carcinoma (Chronic) Current Medications: Current Medications Acetaminophen (Tylenol Supp*) 650 mg CO Q6H PRN PRN Reason: FEVER/PAIN Albuterol (Ventolin 2.5 Mg/3 Ml Neb.Mayela*) 2.5 mg INH Q2H PRN PRN Reason: SOB/WHEEZING Fentanyl Citrate (Fentanyl*) 25 mcg IV SLOW PU Q2H PRN PRN Reason: PAIN Last Admin: 05/28/17 05:57 Dose: 25 mcg Heparin Sodium (Porcine) (Heparin Vial(*)) 5,000 units SUBCUT Q8HR [facility] Hydrocortisone Sodium Succinate (Solu-Cortef*) 50 mg IV Q8H [facility] Last Admin: 05/28/17 01:56 Dose: 50 mg Piperacillin Sod/Tazobactam (Sod 3.375 gm/ Sodium Chloride) 100 mls @ 25 mls/ hr IVPB Q8H [facility] Last Admin: 05/28/17 06:00 Dose: 25 mls/hr Sodium Chloride (Ns 0.9% 1000 Ml*) 1,000 mls @ 125 mls/hr IV PER RATE [facility] Last Admin: 05/28/17 07:34 Dose: 125 mls/hr Influenza Virus Vaccine (Fluarix *Quad* *) 0.5 ml IM .ONCE ONE Stop: 05/28/17 09:01 Levothyroxine Sodium (Synthroid Inj*) 70 mcg IV 0600 [facility] Last Admin: 05/28/17 06:01 Dose: 70 mcg Lorazepam (Ativan Inj*) 0.5 mg IV BEDTIME PRN PRN Reason: SLEEP Ondansetron HCl (Zofran Inj*) 4 mg IV Q6H PRN PRN Reason: NAUSEA Pantoprazole Sodium (Protonix Iv*) 40 mg IV DAILY [facility] Last Admin: 05/28/17 08:31 Dose: 40 mg - Review of Systems Constitutional Symptoms: Yes: Weight Loss, No: Fever, Night Sweats Thyroid: Positive: Primary Hypothyroidism, Other - total thyroidectomy Pulmonary: Negative: Cough, Sputum, Hemoptysis, Wheezing, Respiratory Distress Cardiology: Negative: Chest Pain, Shortness of Breath, Palpitations, Swelling of Ankles Gastroenterology: Positive: Abdominal Pain, Change in Bowel Habits - diarrhea has improved since hepatic embolization Negative: Nausea, Vomiting Past Medical History: CsCx Bruce 2011 MEN2A diagnosied 2001 with medullary carcinoma of the thyroid - she had a total thyroidectomy 2001 right adrenectomy for pheochromocytoma 2006 left adrenalectomy for pheochromocytoma [address] scan revealed 2 liver metastases - subsequently developed diarrhea resistant to all treatment and has had several hospitalizations with nausea/ diarrhea Comorbidities: Adrenal insufficiency - glucocorticoids and mineralocorticoids Metastatic endocrine tumor - CEA positive likely medullary carcinoma of the thyroid (other primary tumors ruled out - no biopsies of her liver metastases) Depression Home Medications: Home Medications Medication Instructions Recorded Confirmed Type Calcitriol CAP* [Rocaltrol CAP*] 0.5 mcg PO BID 06/25/12 05/27/17 History Fludrocortisone Acetate TAB* 0.1 mg PO DAILY 06/25/12 05/27/17 History [Florinef TAB*] Calcium Carbonate CHEW TAB* [Tums*] 1,000 mg PO BID 03/10/15 05/27/17 History Cyclobenzaprine HCl [Flexeril 5 mg 5 mg PO BEDTIME 03/22/16 05/27/17 History (NF)] Escitalopram (NF) [Lexapro 10 mg 10 mg PO DAILY 03/22/16 05/27/17 History (NF)] Gabapentin CAP(*) [Neurontin 100 200 mg PO QAM 03/22/16 05/27/17 History mg CAP(*)] Gabapentin CAP(*) [Neurontin 100 300 mg PO 1200 03/22/16 05/27/17 History mg CAP(*)] buPROPion SR TAB* [Wellbutrin SR 150 mg PO BID 03/22/16 05/27/17 History TAB*] traMADol TAB* [Ultram*] 50 mg PO QID PRN 03/22/16 05/27/17 History Hydrocortisone [Cortef] 10 mg PO QPM 05/27/17 05/27/17 History Hydrocortisone [Cortef] 20 mg PO QAM 05/27/17 05/27/17 History Levothyroxine TAB* [Synthroid TAB*] 137 mcg PO DAILY 05/27/17 05/27/17 History Allergies: Allergies Allergy/AdvReac Type Severity Reaction Status Date / Time Metronidazole [From Flagyl] AdvReac Intermediate Pain Verified 05/27/17 15:48 - Family History Family History: MEN2A Mother - medullary carcinoma of the thyroid/pheochromocytoma Brother - Toño - thyroidectomy/adrenalectomy x 1 Other brother - Medullary thyroid carcinoma/Diabetes mellitus - Social History Social History: Former tobacco. Occasional alcohol. Marijuana Living Situation: and son in grade school Occupation: disabled. Objective - Vital Signs Vital Signs: Vital Signs 05/27/17 05/27/17 05/27/17 21:54 21:56 22:00 Temperature Pulse Rate 73 73 Respiratory Rate Blood Pressure 112/67 112/70 (mmHg) O2 Sat by Pulse 96 97 Oximetry 05/27/17 05/27/17 05/27/17 22:21 22:30 22:50 Temperature 98 F Pulse Rate 71 69 Respiratory 18 18 Rate Blood Pressure 104/60 104/60 (mmHg) O2 Sat by Pulse 96 97 Oximetry 05/27/17 05/27/17 05/27/17 23:00 23:04 23:19 Temperature 97.6 F 97.6 F Pulse Rate 67 67 Respiratory 17 16 17 Rate Blood Pressure 120/80 120/80 (mmHg) O2 Sat by Pulse 97 97 Oximetry 05/28/17 05/28/17 05/28/17 01:59 02:37 03:18 Temperature Pulse Rate Respiratory 16 16 Rate Blood Pressure (mmHg) O2 Sat by Pulse 97 Oximetry 05/28/17 05/28/17 05/28/17 03:19 05:57 07:29 Temperature 97.7 F Pulse Rate 65 Respiratory 16 17 20 Rate Blood Pressure 91/58 (mmHg) O2 Sat by Pulse 99 Oximetry 05/28/17 07:40 Temperature 97.8 F Pulse Rate 72 Respiratory 16 Rate Blood Pressure 107/61 (mmHg) O2 Sat by Pulse 100 Oximetry - Intake and Output Intake and Output: Intake & Output 05/25/17 05/26/17 05/27/17 05/28/17 11:59 11:59 11:59 11:59 Intake Total 1231 Output Total 500 Balance 731 Weight 96 lb 9.6 oz Intake: IV Fluids 1131 ABX - ZOSYN 154 NS (0.9%) 977 IVPB 100 ABX - ZOSYN 100 Oral 0 Output: Urine 500 Intake and Output Start: 05/27/17 22: 30 Freq: DAILY@0600,1400,2200 Status: Active Protocol: Document 05/28/17 05:46 [id number] (Rec: 05/28/17 05:47 [id number]) - Physical Exam General Physical Exam Comment: She is in pain, but otherwise is warm and well perfused General: No Cyanosis, No Anemia, No Jaundice, No Clubbing Eye Exam: bilateral: EOMI Skin: Normal: Rash Thyroid Function: Clinically Euthyroid -: No Cervical adenopathy, No Supraclav. adenopathy, Yes Other - no palpable thyroid tissue Endocrine: No Central Obesity, No Hirsuitism, No Virilism, No Acromegaly, No Vitiligo, No Flushing, No Acanthosis nigricans, No Violaceious striae, No Floresita Syndrome, No Buccal pigmenatation Lungs and Chest: Yes: Chest Expansion Full, Chest Expansion Symetrica, Percussion Note Resonant, Vessicular Breath Sounds. No: Crackles, Wheezes Heart Rate and Rhythm: Regular [place] Beat: Non Displaced Additional Cardiovascular: Yes: Normal Heart Sounds. No: Heart Murmur, Pedal Edema Abdominal Exam: Yes: Soft, Abdominal Tenderness - right upper quadrant, Bowel Sounds Present. No: Distention, Abdominal Mass, Guarding, Rebound Tenderness - Extremities Cranial Nerves II-XII Intact: Yes Limbs: Normal Power, Normal Tone - Neuro Orientation: A/O x3 Psychiatric: Normal Speech: Normal Results - Results Lab Results: Laboratory Tests 05/27/17 05/27/17 05/27/17 15:50 20:45 20:45 WBC 14.7 H Hgb 11.7 L Hct 35 Plt Count 479 H Neut % (Auto) 90.9 H Sodium 135 Potassium 3.8 Chloride 99 L Carbon Dioxide 28 Anion Gap 8 BUN 10 Creatinine 0.58 Est GFR ( Amer) 148.1 Est GFR (Non-Af Amer) 115.1 BUN/Creatinine Ratio 17.2 Glucose 109 H Lactic Acid Calcium 7.8 L Ionized Calcium Total Bilirubin 0.20 AST 25 ALT 33 Alkaline Phosphatase 63 Troponin I 0.00 05/27/17 05/27/17 20:45 20:45 WBC Hgb Hct Plt Count Neut % (Auto) Sodium Potassium Chloride Carbon Dioxide Anion Gap BUN Creatinine Est GFR ( Amer) Est GFR (Non-Af Amer) BUN/Creatinine Ratio Glucose Lactic Acid 0.5 Calcium Ionized Calcium 3.76 L Total Bilirubin AST ALT Alkaline Phosphatase Troponin I Radiology Results: Patient Name: POORNIMA JENKINS Medical Record#: [id number] Ordering Physician: Candi Green MD Acct.#: [id number] : 1975 Age: 42 Sex: F Location: EMERGENCY DEPARTMENT Exam Date: 05/27/171928 ADM Status: REG ER Order Information: US ABDOMEN LIMITED Accession Number: [id number] CPT: 00452 Indication: 1 week post liver embolization for neoplastic lesions. Gallbladder wall thickening on CT without gallbladder distention. Comparison: CT of the same date. Technique: Limited RIGHT upper quadrant ultrasound. Report: Appropriate direction flow documented in the portal and hepatic veins. Arterial flow documented at the proximal intrahepatic segment of the hepatic artery with normal waveform. 18 cm liver is mildly heterogeneous in echogenicity. Refer to CT of the same date for description of focal hepatic lesions. Negative for intrahepatic biliary dilatation. 5.2 mm common bile duct. No stones visualized within the common bile duct. Partially distended gallbladder is remarkable for diffuse wall thickening measuring up to 7.2 mm. Negative for cholelithiasis or visualized biliary sludge. Positive for sonographic Rojas's sign. Small volume of pericholecystic fluid noted based on correlation with CT. Visualized pancreas without ductal dilatation. Negative for obstructive uropathy of the RIGHT kidney. IMPRESSION: Significant diffuse gallbladder wall thickening, trace pericholecystic fluid, and positive sonographic Rojas's sign without significant gallbladder distention or cholelithiasis. Given recent hepatic embolization the constellation of findings is concerning for ischemic cholecystitis. <Electronically signed by Oliverio Thakur MD in [place]> 05/27/172038 Dictated By: Oliverio Thakur MD Dictated Date/Time: 05/27/172038 Transcribed Date/Time: 05/27/172030 Copy to: CC:Candi Green MD; Loyda Calvert MD Imaging - [facility] - [facility] - [facility] [address] [address] ph ([phone]) ph ([phone]) ph ([phone]) of Patient Name: POORNIMA JENKINS Medical Record#: [id number] Ordering Physician: Candi Green MD Acct.#: [id number] : 1975 Age: 42 Sex: F Location: EMERGENCY DEPARTMENT Exam Date: 05/27/171758 ADM Status: REG ER Order Information: CT ABD/PEL W Accession Number: [id number] CPT: 61335 ADDENDUM In addition given history of recent hepatic arterial embolization consider ischemic cholecystitis. <Electronically signed by Oliverio Thakur MD in OV>05/27/171925 Dictated by: Oliverio Thakur MD Dictated Date/Time:05/27/171925 Transcribed Date/Time: 05/27/171925 Copy to: Candi Green MD; Loyda Calvert MD INDICATION: Pain post embolization of liver lesions one week ago. MEN 2 syndrome. COMPARISON: May 27, 2015 MRI. TECHNIQUE: Multidetector CT images were obtained from the lung bases to the ischial tuberosities with 55.2 mL Omnipaque 300 IV and oral contrast. Multiplanar reformation. REPORT: Unremarkable visualized inferior thorax. Patent portal, superior mesenteric, and splenic veins. The liver measures 19 cm cephalocaudal. Multiple hypodense lesions at the RIGHT hepatic lobe with dominant 1.1 x 1.7 cm lesion at the RIGHT posterior hepatic segment reference image 14. The lesions are new or increased in size compared with the 2016 exam. Negative for biliary dilatation.[facility] Patient Name:POORNIMA JENKINS MR:[id number] : 1975 <Electronically signed by Oliverio Thakur MD in OV> 05/27/171921 Dictated By: Oliverio Thakur MD Dictated Date/Time: 05/27/171921 Transcribed Date/Time: 05/27/171909 Copy to: CC:Candi Green MD; Loyda Calvert MD Imaging - [facility] - [facility] - [facility] [address] [id number] [place] [address] ph ([phone]) ph ([phone]) ph ([phone]) 2 of 2 Partially distended gallbladder is remarkable for mural thickening and small volume of pericholecystic fluid. No CT conspicuous gallstones. No CT abnormality of the pancreas or spleen. Negative for CT abnormality of the upper GI, small bowel, appendix visualized along the RIGHT pelvic sidewall, or colon. Minimal free fluid at the dependent pelvis. Negative for free air or hernias. Negative for adrenal lesions. Surgical clips at the level of the nonvisualized adrenal glands corresponding with prior adrenalectomy. Unremarkable kidneys with symmetric nephrograms and pyelograms. Unremarkable nondilated ureters and urinary bladder as well as the retroverted RIGHT deviated uterus and adnexal regions. Negative for lymphadenopathy. Unremarkable abdominal aorta and normally distended inferior vena cava. Negative for suspicious osseous lesions. IMPRESSION: 1. Mildly enlarged liver with multiple hypodense lesions at the RIGHT hepatic lobe with increase in size and number compared with the 2016 exam. 2. Partially distended gallbladder is remarkable for mural thickening and small volume of pericholecystic fluid. No CT conspicuous gallstones. No conspicuous gallstones visualized. Consider CT occult cholelithiasis as well as a calculus cholecystitis. Correlate with clinical assessment and consider RIGHT upper quadrant ultrasound for further assessment. 1 of 2 EKG Report: Sinus rhythm, short CO interval, long QTc Assessment - Problem List Assessment: Patient Problems Acute cholecystitis (Acute) Adrenal hypofunction (Acute) Hypocalcemia (Acute) Hypoparathyroidism (Chronic) Hypothyroidism (Chronic) Liver metastases (Chronic) MEN 2A syndrome (Chronic) Pheochromocytoma (Chronic) Thyroid cancer, medullary carcinoma (Chronic) DVT prophylaxis (Acute 06/02/14) Full code status (Acute 06/02/14) Marijuana use (Chronic) Plan: Acute cholecystitis (Acute) She presents with acute cholecystitis following hepatic embolization of metastases from medullary carcinoma of the thyroid. This is a described complication of hepatic embolization - I am surprised it was delayed this long. However, she will have a laparoscopic cholecystectomy today. I note that pain from hepatic embolization can be delayed due to edema, but I doubt this is the cause of her pain. Adrenal hypofunction (Acute) Glucocorticoid deficiency: She requires supplementation of Hydrocortisone for stress steroids. She has been receiving hydrocortisone 50 mg tid and she will receive 100 mg just prior to surgery. Once she is able to eat and drink she should be on stress steroids for 2 - 3 days (3 fold the usual dose of 30 mg daily). Mineralocorticoid deficiency: She can't receive parenteral fludrocortisone. I recommend she receives IVF with Normal saline to prevent hypotension. She may require saline boluses to maintain her BP. Once she is eating and drinking she should restart her usual fludrocortisone dose - 0.1 mg daily Hypoparathyroidism (Chronic)/.Hypocalcemia (Acute) She is hypocalcemic and has no parathyroid tissue. I think she should have Q8 hourly calcium carbonate 1 gram IV. I will prescribe parenteral calcitriol. We will check her calcium every 8 hours along with magnesium Hypothyroidism (Chronic) She will restart this when she is eating and drinkng Liver metastases (Chronic) see above MEN 2A syndrome (Chronic) major underlying diagnosis Pheochromocytoma (Chronic) These have been removed - no evidence of recurrence Thyroid cancer, medullary carcinoma (Chronic) She has had major elevation of her CEA. Interestingly her diarrhea and nausea cleared up after embolization DVT prophylaxis (Acute 06/02/14) Full code status (Acute 06/02/14) Marijuana use (Chronic) I discussed the above with the patient and her
[2017-05-28] MEDS ORDERED: Influenza VAC *QUAD* 2017-18* 0.5 ML SYRINGE IM ONE (09:00)
[2017-05-28] MEDS ORDERED: LEVOTHYROXINE IV SCH (09:00)
[2017-05-28] MEDS ORDERED: Calcium Gluconate INJ* 2 GM in NS 0.9% 100 ML* 100 ML IV ONE (09:00)
[2017-05-28] MEDS ORDERED: D5W IV SCH (09:00)
[2017-05-28] MEDS ORDERED: Ondansetron INJ* 2 MG/ML VIAL IV PRN (09:45)
[2017-05-28] MEDS ORDERED: Ketorolac INJ* 30 MG/ML 1 ML VIAL ONE (10:11)
[2017-05-28] MEDS ORDERED: Ondansetron INJ* 2 MG/ML VIAL ONE (10:11)
[2017-05-28] MEDS ORDERED: Neostigmine Methylsulfate* 2 MG/2 ML SYRINGE ONE (10:23)
--- NOTE | 2017-05-28 10:53 | PN ---
Progress Note - Progress Note Date of Service: 05/28/17 Note: Brief Operative Note: Pre-op: Acute acalculous cholecystitis Post-op: Same Procedure: Laparoscopic cholecystectomy Surgeon: Dr. Loaiza Stress Test Technician: EFRAIN Craven Anaesthesia: GETA EBL: <50 cc Fluids: LR 1000 cc Catheter: None Drains: None Specimen: Gallbladder Findings: See dictated op note
[2017-05-28] MEDS ORDERED: Midazolam concentrated* 5 MG/ML 1 ml VIAL ONE (10:56)
[2017-05-28] MEDS ORDERED: HYDROmorphone INJ* 1 MG/ML CARPUJECT SYRINGE ONE (11:28)
[2017-05-28] MEDS: HYDROmorphone INJ* 1 MG/ML CARPUJECT SYRINGE IV PRN ×4 (11:29→12:15)
[2017-05-28 11:47] LABS: ABS Basophils 0.1 10^3/ul (0-0.2); ABS Eosinophils 0 10^3/ul (0-0.6); ABS Lymphocytes 0.9 10^3/ul (1.0-4.8); ABS Monocytes 0.3 10^3/ul (0-0.8); ABS Neutrophils 12.7 10^3/ul (1.5-7.7); ABS Nucleated RBC 0.01 10^3/ul; Eosinophil % 0 % (0-6); Hematocrit 34 % (35-47); Hemoglobin 10.8 g/dl (12.0-16.0); Lymphocyte % 6.4 % (25-47); Mean Corpuscular HGB Conc 32 g/dl (31-36); Mean Corpuscular Hemoglobin 28 pg (27-31); Mean Corpuscular Volume 87 fL (80-97); Mean Platelet Volume 7 um3 (7.4-10.4); Nucleated Red Blood Cells % 0; Platelet Count 427 10^3/ul (150-450); Red Blood Count 3.86 10^6/ul (4.0-5.4); Red Cell Distribution Width 14 % (10.5-15)
[2017-05-28] MEDS: fentaNYL* 50 MCG/ML 2 ML VIAL (100 MCG VIAL) IV PRN ×2 (11:52→12:07)
[2017-05-28 11:59] LABS: EGFR Non-African American 102.8 (>60)
--- NOTE | 2017-05-28 13:13 | PN ---
Subjective Date of Service: 05/28/17 Interval History: Patient seen and examined at bedside. She is alert and sitting up and attempting clear liquid tray. Denies any significant pain, n/v at this time. Denies CP, SOB. Responding appropriately. No acute pain or concerns at this time. Family History: Unchanged from Admission Social History: Unchanged from Admission Past Medical History: Unchanged from Admission Objective Active Medications: Acetaminophen (Tylenol Supp*) 650 mg SC Q6H PRN PRN Reason: FEVER/PAIN Albuterol (Ventolin 2.5 Mg/3 Ml Neb.Mayela*) 2.5 mg INH Q2H PRN PRN Reason: SOB/WHEEZING Calcitriol (Calcijex Inj*) 0.5 mcg IV BID [facility] Fentanyl Citrate (Fentanyl*) 25 mcg IV SLOW PU Q2H PRN PRN Reason: PAIN Last Admin: 05/28/17 05:57 Dose: 25 mcg Fentanyl Citrate (Fentanyl*) 25 mcg IV Q2M PRN PRN Reason: PAIN - MODERATE Stop: 05/28/17 14:00 Last Admin: 05/28/17 12:07 Dose: 25 mcg Fludrocortisone Acetate (Florinef Tab*) 0.1 mg PO DAILY [facility] Heparin Sodium (Porcine) (Heparin Vial(*)) 5,000 units SUBCUT Q8HR [facility] Hydrocortisone Sodium Succinate (Solu-Cortef*) 50 mg IV Q8H [facility] Last Admin: 05/28/17 12:27 Dose: Not Given Hydromorphone HCl (Dilaudid Injic*) 0.1 mg IV Q5M PRN PRN Reason: PAIN - SEVERE Stop: 05/28/17 14:00 Last Admin: 05/28/17 12:15 Dose: 0.1 mg Hydromorphone HCl (Dilaudid Injic*) 0.5 mg IV SLOW PU Q2H PRN PRN Reason: PAIN - SEVERE Piperacillin Sod/Tazobactam (Sod 3.375 gm/ Sodium Chloride) 100 mls @ 25 mls/ hr IVPB Q8H [facility] Last Admin: 05/28/17 06:00 Dose: 25 mls/hr Sodium Chloride (Ns 0.9% 1000 Ml*) 1,000 mls @ 125 mls/hr IV PER RATE [facility] Last Admin: 05/28/17 12:48 Dose: 125 mls/hr Calcium Gluconate 1 gm/ Sodium (Chloride) 60 mls @ 120 mls/hr IVPB Q8H [facility] Levothyroxine Sodium (Synthroid Inj*) 70 mcg IV 0600 [facility] Last Admin: 05/28/17 06:01 Dose: 70 mcg Lorazepam (Ativan Inj*) 0.5 mg IV BEDTIME PRN PRN Reason: SLEEP Ondansetron HCl (Zofran Inj*) 4 mg IV Q6H PRN PRN Reason: NAUSEA Ondansetron HCl (Zofran Inj*) 4 mg IV ONCE PRN PRN Reason: NAUSEA/VOMITING Stop: 05/28/17 16:00 Pantoprazole Sodium (Protonix Iv*) 40 mg IV DAILY [facility] Last Admin: 05/28/17 08:31 Dose: 40 mg Vital Signs - 8 hr 05/28/17 05/28/17 05/28/17 05:57 07:29 07:40 Temperature 97.8 F Pulse Rate 72 Respiratory 17 20 16 Rate Blood Pressure 107/61 (mmHg) O2 Sat by Pulse 100 Oximetry 05/28/17 05/28/17 05/28/17 08:00 10:42 10:45 Temperature 98.8 F Pulse Rate 129 92 Respiratory 18 24 22 Rate Blood Pressure 148/87 142/94 (mmHg) O2 Sat by Pulse 100 100 Oximetry 05/28/17 05/28/17 05/28/17 10:52 11:08 11:24 Temperature Pulse Rate 90 83 85 Respiratory 19 13 14 Rate Blood Pressure 131/82 122/75 119/76 (mmHg) O2 Sat by Pulse 100 99 98 Oximetry 05/28/17 05/28/17 05/28/17 11:29 11:45 11:49 Temperature 98.4 F Pulse Rate 82 Respiratory 14 14 16 Rate Blood Pressure 118/38 (mmHg) O2 Sat by Pulse 98 Oximetry 05/28/17 05/28/17 05/28/17 11:52 11:59 12:00 Temperature Pulse Rate 83 Respiratory 16 14 14 Rate Blood Pressure 114/83 (mmHg) O2 Sat by Pulse 95 Oximetry 05/28/17 05/28/17 05/28/17 12:07 12:15 12:17 Temperature Pulse Rate 73 Respiratory 14 18 14 Rate Blood Pressure 124/52 (mmHg) O2 Sat by Pulse 100 Oximetry 05/28/17 05/28/17 05/28/17 12:41 12:52 12:53 Temperature 97.8 F Pulse Rate 66 Respiratory 16 16 16 Rate Blood Pressure 123/79 (mmHg) O2 Sat by Pulse 100 Oximetry 05/28/17 13:06 Temperature 97.8 F Pulse Rate 66 Respiratory 16 Rate Blood Pressure 123/79 (mmHg) O2 Sat by Pulse 100 Oximetry Oxygen Devices in Use Now: None Appearance: Young female, sitting up in bed, NAD Eyes: No Scleral Icterus Ears/Nose/Mouth/Throat: Clear Oropharnyx, Mucous Membranes Moist Neck: NL Appearance and Movements; NL JVP Respiratory: Symmetrical Chest Expansion and Respiratory Effort, Clear to Auscultation Cardiovascular: NL Sounds; No Murmurs; No JVD, RRR Abdominal: - - BS present Extremities: No Edema Neurological: Alert and Oriented x 3, NL Muscle Strength and Tone Lines/Tubes/Other Access: Clean, Dry and Intact Peripheral IV Nutrition: Taking PO's Result Diagrams: 05/28/17 11:27 05/28/17 11:27 Additional Lab and Data: Lab Results 05/27/17 05/27/17 05/27/17 Range/Units 15:50 15:50 15:50 WBC 13.2 H (3.5-10.8) 10^3/ul RBC 4.06 (4.0-5.4) 10^6/ul Hgb 11.6 L (12.0-16.0) g/dl Hct 35 (35-47) % MCV 86 (80-97) fL MCH 29 (27-31) pg MCHC 33 (31-36) g/dl RDW 14 (10.5-15) % Plt Count 496 H (150-450) 10^3/ul MPV 7 L (7.4-10.4) um3 Neut % (Auto) 79.7 (38-83) % Lymph % (Auto) 14.0 L (25-47) % [place] % (Auto) 4.6 (1-9) % Eos % (Auto) 0.5 (0-6) % Baso % (Auto) 1.2 (0-2) % Absolute Neuts (auto) 10.6 H (1.5-7.7) 10^3/ul Absolute Lymphs (auto) 1.8 (1.0-4.8) 10^3/ul Absolute Monos (auto) 0.6 (0-0.8) 10^3/ul Absolute Eos (auto) 0.1 (0-0.6) 10^3/ul Absolute Basos (auto) 0.2 (0-0.2) 10^3/ul Absolute Nucleated RBC 0 10^3/ul Nucleated RBC % 0 Sodium 134 (133-145) mmol/L Potassium 3.9 (3.5-5.0) mmol/L Chloride 100 L (101-111) mmol/L Carbon Dioxide 26 (22-32) mmol/L Anion Gap 8 (2-11) mmol/L BUN 13 (6-24) mg/dL Creatinine 0.61 (0.51-0.95) mg/dL Est GFR ( Amer) 139.7 (>60) Est GFR (Non-Af Amer) 108.6 (>60) BUN/Creatinine Ratio 21.3 H (8-20) Glucose 104 H (70-100) mg/dL Lactic Acid (0.5-2.0) mmol/L Calcium 7.9 L (8.6-10.3) mg/dL Total Bilirubin 0.20 (0.2-1.0) mg/dL AST 25 (13-39) U/L ALT 33 (7-52) U/L Alkaline Phosphatase 63 (34-104) U/L Ammonia 48 (16-53) mol/L Troponin I 0.00 (<0.04) ng/mL Total Protein 6.9 (6.4-8.9) g/dL Albumin 3.8 (3.2-5.2) g/dL Globulin 3.1 (2-4) g/dL Albumin/Globulin Ratio 1.2 (1-3) Urine Color Urine Appearance Urine pH (5-9) Ur Specific [place] (1.010-1.030) Urine Protein (Negative) Urine Ketones (Negative) Urine Blood (Negative) Urine Nitrate (Negative) Urine Bilirubin (Negative) Urine Urobilinogen (Negative) Ur Leukocyte Esterase (Negative) Urine Glucose (Negative) 05/27/17 05/27/17 Range/Units 15:50 17:20 WBC (3.5-10.8) 10^3/ul RBC (4.0-5.4) 10^6/ul Hgb (12.0-16.0) g/dl Hct (35-47) % MCV (80-97) fL MCH (27-31) pg MCHC (31-36) g/dl RDW (10.5-15) % Plt Count (150-450) 10^3/ul MPV (7.4-10.4) um3 Neut % (Auto) (38-83) % Lymph % (Auto) (25-47) % [place] % (Auto) (1-9) % Eos % (Auto) (0-6) % Baso % (Auto) (0-2) % Absolute Neuts (auto) (1.5-7.7) 10^3/ul Absolute Lymphs (auto) (1.0-4.8) 10^3/ul Absolute Monos (auto) (0-0.8) 10^3/ul Absolute Eos (auto) (0-0.6) 10^3/ul Absolute Basos (auto) (0-0.2) 10^3/ul Absolute Nucleated RBC 10^3/ul Nucleated RBC % Sodium (133-145) mmol/L Potassium (3.5-5.0) mmol/L Chloride (101-111) mmol/L Carbon Dioxide (22-32) mmol/L Anion Gap (2-11) mmol/L BUN (6-24) mg/dL Creatinine (0.51-0.95) mg/dL Est GFR ( Amer) (>60) Est GFR (Non-Af Amer) (>60) BUN/Creatinine Ratio (8-20) Glucose (70-100) mg/dL Lactic Acid 1.0 (0.5-2.0) mmol/L Calcium (8.6-10.3) mg/dL Total Bilirubin (0.2-1.0) mg/dL AST (13-39) U/L ALT (7-52) U/L Alkaline Phosphatase (34-104) U/L Ammonia (16-53) mol/L Troponin I (<0.04) ng/mL Total Protein (6.4-8.9) g/dL Albumin (3.2-5.2) g/dL Globulin (2-4) g/dL Albumin/Globulin Ratio (1-3) Urine Color Straw Urine Appearance Clear Urine pH 9.0 (5-9) Ur Specific [place] 1.005 L (1.010-1.030) Urine Protein Negative (Negative) Urine Ketones Negative (Negative) Urine Blood Negative (Negative) Urine Nitrate Negative (Negative) Urine Bilirubin Negative (Negative) Urine Urobilinogen Negative (Negative) Ur Leukocyte Esterase Negative (Negative) Urine Glucose Negative (Negative) Assess/Plan/Problems-Billing Assessment: Ms. 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 - Patient Problems (1) Acute cholecystitis Code(s): K81.0 - ACUTE CHOLECYSTITIS Comment: Likely secondary to hepatic [place] [facility] [place] S/p laparascopic cholecystectomy, POD #0 Management per surgery (2) Adrenal hypofunction Code(s): E27.49 - OTHER ADRENOCORTICAL INSUFFICIENCY Comment: Appreciate endocrinology consult Continue hydrocortisone 50 mg TID for stress dose steroids - recommended to continue for 2-3 days. Resume fludrocortisone 0.1 mg daily when taking PO and utilize IVF to prevent hypotension. (3) Hypocalcemia Code(s): E83.51 - HYPOCALCEMIA Comment: Secondary to hypoparathyroidism Endocrine recommends q8h calcium carbonate 1 gm IV and parenteral calcitriol Monitor mag and calcium q8 hours (4) Hypothyroidism Code(s): E03.9 - HYPOTHYROIDISM, UNSPECIFIED Comment: Continue levothyroxine. (5) MEN 2A syndrome Code(s): E31.22 - MULTIPLE ENDOCRINE NEOPLASIA [MEN] TYPE IIA Comment: Medullary thyroid cancer metastatic to the liver s/p hepatic embolization on [place] [facility] S/p thyroidectomy, parathyroidectomy, and bilateral adrenalectomy Endocrine following; appreciate Dr. Francis's recommendations (6) Depression with anxiety Comment: Resume escitalopram and bupropion when tolerating PO. (7) DVT prophylaxis Comment: Per surgery SQ heparin Status and Disposition: Inpatient. D/c to home when medically stable and okay with surgery and endocrine.
[2017-05-28] MEDS: HYDROmorphone INJ* 1 MG/ML CARPUJECT SYRINGE IV SLOW PU PRN ×4 (13:31→22:04)
[2017-05-28] MEDS ORDERED: Magnesium Sulfate 4 GM IV IVPB ONE (16:00)
[2017-05-28] MEDS: Calcium Gluconate INJ* 1 GM in NS 0.9% 50 ML* 50 ML IVPB SCH (16:21)
[2017-05-28] MEDS: Fludrocortisone Acetate TAB* 0.1 MG PO SCH (19:14)
[2017-05-28 20:08] LABS: EGFR Non-African American 89.7 (>60)
[2017-05-28] MEDS ORDERED: CALCITRIOL 1 MCG/ML IV SCH (21:00)
[2017-05-28] MEDS: Heparin VIAL(*) 5000 UNITS/ML VIAL (FIVE THOUSAND) SUBCUT SCH (22:15)
[2017-05-29] MEDS: Calcium Gluconate INJ* 1 GM in NS 0.9% 50 ML* 50 ML IVPB SCH ×2 (01:28→09:00)
[2017-05-29] MEDS: Hydrocortisone INJ* 100 MG VIAL IV SCH (01:28)
[2017-05-29] MEDS: HYDROmorphone INJ* 1 MG/ML CARPUJECT SYRINGE IV SLOW PU PRN ×3 (01:47→08:12)
[2017-05-29] MEDS: NS 0.9% 1000 ML* 1,000 ML IV SCH (02:55)
[2017-05-29] MEDS: Piperacillin/Tazobac ADVAN(*) 3.375 GM in NS 0.9% 100 ML* 100 ML IVPB SCH (05:43)
[2017-05-29] MEDS: Heparin VIAL(*) 5000 UNITS/ML VIAL (FIVE THOUSAND) SUBCUT SCH (05:44)
[2017-05-29] MEDS: Levothyroxine INJ* 100 MCG/5 ML VIAL IV SCH (05:44)
--- NOTE | 2017-05-29 06:12 | OP ---
CC: Loyda Calvert MD * DATE OF OPERATION: 05/28/17 - ROOM #343 DATE OF : 79 SURGEON: Toño Loaiza MD WELFARE VISITOR: EFRAIN Brothers ANESTHESIOLOGIST: Clifford Maki MD ANESTHESIA: General endotracheal. PRE-OP DIAGNOSIS: Acalculous cholecystitis. POST-OP DIAGNOSIS: Acalculous cholecystitis. OPERATIVE PROCEDURE: Laparoscopic cholecystectomy. ESTIMATED BLOOD LOSS: Minimal. IV FLUIDS: Crystalloids. SPECIMENS: Gallbladder. DRAINS: None. COMPLICATIONS: None. COUNTS: Instrument, needle, and sponge counts correct. DESCRIPTION OF PROCEDURE: The patient was brought to the operating room and placed on the table supine. Sequential compression devices were placed on both lower extremities and general anesthesia was administered. The abdomen was prepped and draped in the usual sterile fashion and time-out was performed. Local anesthetic was infiltrated into the skin and soft tissue prior to making each incision. Entry into the abdomen was through a transumbilical incision using an open technique. There was a small umbilical hernia and this was enlarged to accommodate a 12-mm trocar. Carbon dioxide was insufflated to a pressure of 15 mmHg. Under direct visualization, 5-mm trocars were placed in the subxiphoid position and also 2 in the right upper quadrant. The gallbladder appeared to be edematous with acute inflammatory changes. Findings were consistent with acute cholecystitis. The fundus was grasped and retracted superiorly and the infundibulum was grasped. The peritoneum investing the gallbladder was incised both medially and laterally and then the peritoneum was dissected off. The node of [place]ot was identified and exposed the cystic artery, which was bluntly dissected out. It was doubly clipped and divided. The cystic duct was then dissected out and after obtaining critical view, the cystic duct was doubly clipped and divided. There was also a posterior branch to the cystic artery, which was identified, clipped and divided. The gallbladder was then freed from attachments to the liver using the cautery and staying in an avascular plane. Once the gallbladder was freed, it was placed in an endoscopic retrieval bag and retrieved through the umbilical site. Hemostasis was assured. One lavage was performed in the right upper quadrant until clear. Ports were then removed under direct visualization. Carbon dioxide was released. Umbilical wound was closed with 0 Vicryl in an interrupted [id number] fashion. Skin incisions were closed with 4-0 Monocryl in a subcuticular fashion. Steri-Strips were applied. The patient tolerated the procedure well. She was extubated and transferred to Recovery in stable condition. [id number]/[facility] #: [id number] MTDD
[2017-05-29 08:26] LABS: ABS Basophils 0.1 10^3/ul (0-0.2); ABS Eosinophils 0 10^3/ul (0-0.6); ABS Lymphocytes 1.7 10^3/ul (1.0-4.8); ABS Monocytes 0.5 10^3/ul (0-0.8); ABS Neutrophils 11.8 10^3/ul (1.5-7.7); ABS Nucleated RBC 0.01 10^3/ul; Eosinophil % 0.3 % (0-6); Hematocrit 30 % (35-47); Lymphocyte % 11.9 % (25-47); Mean Corpuscular HGB Conc 33 g/dl (31-36); Mean Corpuscular Hemoglobin 29 pg (27-31); Mean Corpuscular Volume 86 fL (80-97); Mean Platelet Volume 7 um3 (7.4-10.4); Nucleated Red Blood Cells % 0; Platelet Count 369 10^3/ul (150-450); Red Blood Count 3.51 10^6/ul (4.0-5.4); Red Cell Distribution Width 14 % (10.5-15); White Blood Count 14.1 10^3/ul (3.5-10.8)
--- NOTE | 2017-05-29 08:35 | PN ---
Subjective - Subjective Reason for Note: Progress Note History: She tolerated surgery well. She is taking liquids and medications by mouth. She has had no tingling/cramps from hypocalcemia. She continues to have some pain control issues. Active Problems: Active Problems Acute cholecystitis (Acute) K81.0 Likely secondary to hepatic embolization at [facility] in April S/p laparascopic cholecystectomy, POD #0 Management per surgery Depression with anxiety (Acute) Resume escitalopram and bupropion when tolerating PO. Adrenal hypofunction (Chronic) E27.49 Appreciate endocrinology consult Continue hydrocortisone 50 mg TID for stress dose steroids - recommended to continue for 2-3 days. Resume fludrocortisone 0.1 mg daily when taking PO and utilize IVF to prevent hypotension. Hypocalcemia (Chronic) E83.51 Secondary to hypoparathyroidism Endocrine recommends q8h calcium carbonate 1 gm IV and parenteral calcitriol Monitor mag and calcium q8 hours Hypoparathyroidism (Chronic) E20.9 Hypothyroidism (Chronic) E03.9 Continue levothyroxine. Liver metastases (Chronic) C78.7 MEN 2A syndrome (Chronic) E31.22 Medullary thyroid cancer metastatic to the liver s/p hepatic embolization on 05/09/17 at [facility] S/p thyroidectomy, parathyroidectomy, and bilateral adrenalectomy Endocrine following; appreciate Dr. Francis's recommendations Pheochromocytoma (Chronic) D35.00 Thyroid cancer, medullary carcinoma (Chronic) Current Medications: Current Medications Acetaminophen (Tylenol Supp*) 650 mg [place] Q6H PRN PRN Reason: FEVER/PAIN Albuterol (Ventolin 2.5 Mg/3 Ml Neb.Mayela*) 2.5 mg INH Q2H PRN PRN Reason: SOB/WHEEZING Calcitriol (Calcijex Inj*) 0.5 mcg IV BID [facility] Last Admin: 05/28/17 20:49 Dose: 0.5 mcg Fentanyl Citrate (Fentanyl*) 25 mcg IV SLOW PU Q2H PRN PRN Reason: PAIN Last Admin: 05/28/17 05:57 Dose: 25 mcg Fludrocortisone Acetate (Florinef Tab*) 0.1 mg PO DAILY [facility] Last Admin: 05/28/17 19:14 Dose: 0.1 mg Heparin Sodium (Porcine) (Heparin Vial(*)) 5,000 units SUBCUT Q8HR [facility] Last Admin: 05/29/17 05:44 Dose: 5,000 units Hydrocortisone Sodium Succinate (Solu-Cortef*) 50 mg IV Q8H [facility] Last Admin: 05/29/17 01:28 Dose: 50 mg Hydromorphone HCl (Dilaudid Injic*) 0.5 mg IV SLOW PU Q2H PRN PRN Reason: PAIN - SEVERE Last Admin: 05/29/17 08:12 Dose: 0.5 mg Piperacillin Sod/Tazobactam (Sod 3.375 gm/ Sodium Chloride) 100 mls @ 25 mls/ hr IVPB Q8H [facility] Last Admin: 05/29/17 05:43 Dose: 25 mls/hr Sodium Chloride (Ns 0.9% 1000 Ml*) 1,000 mls @ 125 mls/hr IV PER RATE [facility] Last Admin: 05/29/17 02:55 Dose: 125 mls/hr Calcium Gluconate 1 gm/ Sodium (Chloride) 60 mls @ 120 mls/hr IVPB Q8H [facility] Last Admin: 05/29/17 01:28 Dose: 120 mls/hr Levothyroxine Sodium (Synthroid Inj*) 70 mcg IV 0600 [facility] Last Admin: 05/29/17 05:44 Dose: 70 mcg Lorazepam (Ativan Inj*) 0.5 mg IV BEDTIME PRN PRN Reason: SLEEP Ondansetron HCl (Zofran Inj*) 4 mg IV Q6H PRN PRN Reason: NAUSEA Pantoprazole Sodium (Protonix Iv*) 40 mg IV DAILY [facility] Last Admin: 05/28/17 08:31 Dose: 40 mg Home Medications: Home Medications Medication Instructions Recorded Confirmed Type Calcitriol CAP* [Rocaltrol CAP*] 0.5 mcg PO BID 06/25/12 05/27/17 History Fludrocortisone Acetate TAB* 0.1 mg PO DAILY 06/25/12 05/27/17 History [Florinef TAB*] Calcium Carbonate CHEW TAB* [Tums*] 1,000 mg PO BID 03/10/15 05/27/17 History Cyclobenzaprine HCl [Flexeril 5 mg 5 mg PO BEDTIME 03/22/16 05/27/17 History (NF)] Escitalopram (NF) [Lexapro 10 mg 10 mg PO DAILY 03/22/16 05/27/17 History (NF)] Gabapentin CAP(*) [Neurontin 100 200 mg PO QAM 03/22/16 05/27/17 History mg CAP(*)] Gabapentin CAP(*) [Neurontin 100 300 mg PO 1200 03/22/16 05/27/17 History mg CAP(*)] buPROPion SR TAB* [Wellbutrin SR 150 mg PO BID 03/22/16 05/27/17 History TAB*] traMADol TAB* [Ultram*] 50 mg PO QID PRN 03/22/16 05/27/17 History Hydrocortisone [Cortef] 10 mg PO QPM 05/27/17 05/27/17 History Hydrocortisone [Cortef] 20 mg PO QAM 05/27/17 05/27/17 History Levothyroxine TAB* [Synthroid TAB*] 137 mcg PO DAILY 05/27/17 05/27/17 History Allergies: Allergies Allergy/AdvReac Type Severity Reaction Status Date / Time Metronidazole [From Flagyl] AdvReac Intermediate Pain Verified 05/27/17 15:48 - Social History Living Situation: and son in grade school Occupation: disabled. Objective - Vital Signs Vital Signs: Vital Signs 05/28/17 05/28/17 05/28/17 10:42 10:45 10:52 Temperature 98.8 F Pulse Rate 129 92 90 Respiratory 24 22 19 Rate Blood Pressure 148/87 142/94 131/82 (mmHg) O2 Sat by Pulse 100 100 100 Oximetry 05/28/17 05/28/17 05/28/17 11:08 11:24 11:29 Temperature Pulse Rate 83 85 Respiratory 13 14 14 Rate Blood Pressure 122/75 119/76 (mmHg) O2 Sat by Pulse 99 98 Oximetry 05/28/17 05/28/17 05/28/17 11:45 11:49 11:52 Temperature 98.4 F Pulse Rate 82 Respiratory 14 16 16 Rate Blood Pressure 118/38 (mmHg) O2 Sat by Pulse 98 Oximetry 05/28/17 05/28/17 05/28/17 11:59 12:00 12:07 Temperature Pulse Rate 83 Respiratory 14 14 14 Rate Blood Pressure 114/83 (mmHg) O2 Sat by Pulse 95 Oximetry 05/28/17 05/28/17 05/28/17 12:15 12:17 12:41 Temperature 97.8 F Pulse Rate 73 66 Respiratory 18 14 16 Rate Blood Pressure 124/52 123/79 (mmHg) O2 Sat by Pulse 100 100 Oximetry 05/28/17 05/28/17 05/28/17 12:52 12:53 13:06 Temperature 97.8 F Pulse Rate 66 Respiratory 16 16 16 Rate Blood Pressure 123/79 (mmHg) O2 Sat by Pulse 100 Oximetry 05/28/17 05/28/17 05/28/17 13:20 13:31 14:04 Temperature 97.8 F Pulse Rate 77 Respiratory 18 16 16 Rate Blood Pressure 131/89 (mmHg) O2 Sat by Pulse 100 Oximetry 05/28/17 05/28/17 05/28/17 14:57 15:23 16:51 Temperature 97.6 F 98.5 F Pulse Rate 75 83 Respiratory 16 14 18 Rate Blood Pressure 117/68 119/74 (mmHg) O2 Sat by Pulse 98 97 Oximetry 05/28/17 05/28/17 05/28/17 17:06 18:21 18:55 Temperature 98.8 F Pulse Rate 77 Respiratory 20 18 18 Rate Blood Pressure 128/73 (mmHg) O2 Sat by Pulse 100 Oximetry 05/28/17 05/28/17 05/28/17 19:19 20:58 20:59 Temperature Pulse Rate Respiratory 18 16 16 Rate Blood Pressure (mmHg) O2 Sat by Pulse Oximetry 05/28/17 05/28/17 05/28/17 21:01 22:04 22:13 Temperature Pulse Rate 82 Respiratory 16 14 14 Rate Blood Pressure 112/70 (mmHg) O2 Sat by Pulse 98 Oximetry 05/28/17 05/29/17 05/29/17 23:18 00:32 00:53 Temperature 97.6 F Pulse Rate 69 74 Respiratory 14 16 16 Rate Blood Pressure 107/61 (mmHg) O2 Sat by Pulse 99 99 Oximetry 05/29/17 05/29/17 05/29/17 01:47 02:52 02:58 Temperature 97.7 F Pulse Rate 65 Respiratory 14 18 18 Rate Blood Pressure 120/69 (mmHg) O2 Sat by Pulse 100 Oximetry 05/29/17 05/29/17 05/29/17 04:06 05:08 08:12 Temperature Pulse Rate Respiratory 16 14 18 Rate Blood Pressure (mmHg) O2 Sat by Pulse Oximetry - Intake and Output Intake and Output: Intake & Output 05/26/17 05/27/17 05/28/17 05/29/17 11:59 11:59 11:59 11:59 Intake Total 1761 3302 Output Total 500 1050 Balance 1261 2252 Weight 96 lb 9.6 oz 105 lb 11.2 oz Intake: IV Fluids 1631 1966 ABX - ZOSYN 154 120 CA 62 NS 500 NS (0.9%) 977 1784 IVPB 100 281 ABX - ZOSYN 100 110 CA 66 Magnesium 105 Oral 30 1055 Output: Urine 500 1050 ADLs: Meal Record Start: 05/27/17 22: 30 Freq: Status: Active Protocol: Document 05/28/17 14:10 [id number] (Rec: 05/28/17 14:10 [id number] [facility] [id number]-[id number][place] Intake and Output Start: 05/27/17 22: 30 Freq: DAILY@0600,1400,2200 Status: Active Protocol: Document 05/28/17 05:46 [id number] (Rec: 05/28/17 05:47 [id number]) Document 05/28/17 14:00 [id number] (Rec: 05/28/17 14:10 [id number] [facility] [id number]-RDC2) Document 05/28/17 18:12 [id number] (Rec: 05/28/17 18:13 [id number] [id number]) Document 05/28/17 22:00 [id number] (Rec: 05/28/17 23:18 [id number] [id number]) Document 05/29/17 01:58 [id number] (Rec: 05/29/17 01:58 [id number]) Document 05/29/17 06:00 [id number] (Rec: 05/29/17 06:01 [id number]) Results - Results Lab Results: Laboratory Results - last 24 hr 05/28/17 05/28/17 05/28/17 11:27 11:27 11:27 WBC 14.0 H RBC 3.86 L Hgb 10.8 L Hct 34 L MCV 87 MCH 28 MCHC 32 RDW 14 Plt Count 427 MPV 7 L Neut % (Auto) 90.5 H Lymph % (Auto) 6.4 L [place] % (Auto) 2.4 Eos % (Auto) 0 Baso % (Auto) 0.7 Absolute Neuts (auto) 12.7 H Absolute Lymphs (auto) 0.9 L Absolute Monos (auto) 0.3 Absolute Eos (auto) 0 Absolute Basos (auto) 0.1 Absolute Nucleated RBC 0.01 Nucleated RBC % 0 APTT 30.1 Sodium 134 Potassium 3.9 Chloride 102 Carbon Dioxide 23 Anion Gap 9 BUN 15 Creatinine 0.64 Est GFR ( Amer) 132.2 Est GFR (Non-Af Amer) 102.8 BUN/Creatinine Ratio 23.4 H Glucose 147 H Calcium 7.9 L Magnesium 1.5 L 05/28/17 05/29/17 19:45 08:09 WBC 14.1 H RBC 3.51 L Hgb 10.0 L Hct 30 L MCV 86 MCH 29 MCHC 33 RDW 14 Plt Count 369 MPV 7 L Neut % (Auto) 83.9 H Lymph % (Auto) 11.9 L [place] % (Auto) 3.4 Eos % (Auto) 0.3 Baso % (Auto) 0.5 Absolute Neuts (auto) 11.8 H Absolute Lymphs (auto) 1.7 Absolute Monos (auto) 0.5 Absolute Eos (auto) 0 Absolute Basos (auto) 0.1 Absolute Nucleated RBC 0.01 Nucleated RBC % 0 APTT Sodium 135 Potassium 3.5 Chloride 103 Carbon Dioxide 22 Anion Gap 10 BUN 14 Creatinine 0.72 Est GFR ( Amer) 115.4 Est GFR (Non-Af Amer) 89.7 BUN/Creatinine Ratio 19.4 Glucose 177 H Calcium 7.1 L Magnesium 2.2 Assessment - Problem List Assessment: Patient Problems Acute cholecystitis (Acute) Depression with anxiety (Acute) Adrenal hypofunction (Chronic) Hypocalcemia (Chronic) Hypoparathyroidism (Chronic) Hypothyroidism (Chronic) Liver metastases (Chronic) MEN 2A syndrome (Chronic) Pheochromocytoma (Chronic) Thyroid cancer, medullary carcinoma (Chronic) DVT prophylaxis (Acute 06/02/14) Full code status (Acute 06/02/14) Marijuana use (Chronic) Plan: She is 1 day post-operative from laparoscopic cholecystectomy. She has had medullary carcinoma of the thyroid metastases of the liver embolized on 2016. This morning she is recovering. She has no symptoms of hypocalcemia. She is due for a BMP draw. Suggestions: * Check calcium - start her on TUMS * Stress steroids for 2 days - x 2 her usual dose of hydrocortisone * Thyroid hormone - she should restart her usual dose of oral levothyroxine * She will follow up with me as an outpatient. I spoke with EFRAIN Iniguez from the surgical team and explained this to the patient. She may be able to go home later today.
[2017-05-29 08:44] LABS: EGFR Non-African American 112.9 (>60)
[2017-05-29] MEDS ORDERED: Calcium Carbonate CHEW TAB* 500 MG (TUMS) PO SCH (09:00)
[2017-05-29] MEDS ORDERED: Calcitriol CAP* 0.25 MCG PO SCH (09:00)
[2017-05-29] MEDS ORDERED: Hydrocortisone TAB* 10 MG PO SCH ×2 (09:00→21:00)
[2017-05-29] MEDS ORDERED: oxyCODONE/Acetamin 5/325 MG* TAB PO PRN (09:26)
[2017-05-29] MEDS ORDERED: Acetaminophen TAB* 325 MG PO PRN (09:27)
[2017-05-29] MEDS ORDERED: Ibuprofen TAB* 600 MG PO PRN (09:27)
[2017-05-29] MEDS ORDERED: Calcium Carbonate CHEW TAB* 500 MG (TUMS) ONE (09:49)
[2017-05-29] MEDS: Pantoprazole IV* 40 MG IV SCH (09:59)
[2017-05-29] MEDS ORDERED: Calcium Gluconate INJ* 1 GM in NS 0.9% 50 ML* 50 ML IVPB ONE (10:00)
--- NOTE | 2017-05-29 10:03 | PN ---
Progress Note - Progress Note Date of Service: 05/29/17 Note: Surgery Progress: S: POD #1. Doing well overall. Discussed w/ Dr. Francis. Moderate pain. Aurea po. Ambulating. Denies circumoral tingling or carpo-pedal spasms. Current Medications Acetaminophen (Tylenol Supp*) 650 mg VT Q6H PRN PRN Reason: FEVER/PAIN Acetaminophen (Tylenol Tab*) 650 mg PO Q4H PRN PRN Reason: mild pain Albuterol (Ventolin 2.5 Mg/3 Ml Neb.Mayela*) 2.5 mg INH Q2H PRN PRN Reason: SOB/WHEEZING Calcitriol (Rocaltrol Cap*) 0.5 mcg PO BID [facility] Calcium Carbonate (Tums*) 500 mg PO BID [facility] Fentanyl Citrate (Fentanyl*) 25 mcg IV SLOW PU Q2H PRN PRN Reason: PAIN Last Admin: 05/28/17 05:57 Dose: 25 mcg Fludrocortisone Acetate (Florinef Tab*) 0.1 mg PO DAILY [facility] Last Admin: 05/28/17 19:14 Dose: 0.1 mg Heparin Sodium (Porcine) (Heparin Vial(*)) 5,000 units SUBCUT Q8HR [facility] Last Admin: 05/29/17 05:44 Dose: 5,000 units Hydrocortisone (Cortef Tab*) 40 mg PO 0900 [facility] Hydrocortisone (Cortef Tab*) 20 mg PO 2100 [facility] Hydromorphone HCl (Dilaudid Injic*) 0.5 mg IV SLOW PU Q2H PRN PRN Reason: PAIN - SEVERE Last Admin: 05/29/17 08:12 Dose: 0.5 mg Piperacillin Sod/Tazobactam (Sod 3.375 gm/ Sodium Chloride) 100 mls @ 25 mls/ hr IVPB Q8H [facility] Last Admin: 05/29/17 05:43 Dose: 25 mls/hr Sodium Chloride (Ns 0.9% 1000 Ml*) 1,000 mls @ 125 mls/hr IV PER RATE [facility] Last Admin: 05/29/17 02:55 Dose: 125 mls/hr Calcium Gluconate 1 gm/ Sodium (Chloride) 60 mls @ 120 mls/hr IVPB Q8H [facility] Last Admin: 05/29/17 09:00 Dose: 120 mls/hr Ibuprofen (Motrin Tab*) 600 mg PO Q6H PRN PRN Reason: PAIN Levothyroxine Sodium (Synthroid Tab*) 137 mcg PO DAILY@0600 [facility] Lorazepam (Ativan Inj*) 0.5 mg IV BEDTIME PRN PRN Reason: SLEEP Ondansetron HCl (Zofran Inj*) 4 mg IV Q6H PRN PRN Reason: NAUSEA Oxycodone/Acetaminophen (Percocet 5/325 Tab*) 1 tab PO Q3H PRN PRN Reason: PAIN - MODERATE Pantoprazole Sodium (Protonix Iv*) 40 mg IV DAILY [facility] Last Admin: 05/28/17 08:31 Dose: 40 mg O: Vital Signs - 8 hr 05/29/17 05/29/17 05/29/17 02:52 02:58 04:06 Temperature 97.7 F Pulse Rate 65 Respiratory 18 18 16 Rate Blood Pressure 120/69 (mmHg) O2 Sat by Pulse 100 Oximetry 05/29/17 05/29/17 05/29/17 05:08 07:46 08:12 Temperature 98.0 F Pulse Rate 70 Respiratory 14 18 18 Rate Blood Pressure 131/89 (mmHg) O2 Sat by Pulse 100 Oximetry Intake and Output Last 24 Hours 05/27/17 05/28/17 05/29/17 05/30/17 06:59 06:59 06:59 06:59 Intake Total 100 4963 Output Total 500 1050 Balance -400 3913 Weight 96 lb 9.6 oz 105 lb 11.2 oz Intake: IV Fluids 3597 ABX - ZOSYN 274 CA 62 NS 500 NS (0.9%) 2761 IVPB 100 281 ABX - ZOSYN 100 110 CA 66 Magnesium 105 Oral 0 1085 Output: Urine 500 1050 Heart: reg Lungs: clear Abd: lap sites ok w/ small amt drainage at umb incision; soft; incisional tenderness as expected HEENT: + Chovstek's Labs: Laboratory Tests 05/29/17 05/29/17 08:09 08:09 WBC 14.1 H Hgb 10.0 L Calcium 6.4 L* Magnesium 1.9 A: s/p lap ki, doing well hypocalcemia, managed by Dr. Francis (per nsg, patient is to receive this a.m.'s dose of IV ca gluconate, then continue w/ ca carbonate 500 mg, 6 tabs, BID. She will also double her usual hydrocortisone for two days, then resume usual. She is ok for d/c per Dr. Francis.) P: home today (see notes above); instructions reviewed
[2017-05-29] MEDS: Fludrocortisone Acetate TAB* 0.1 MG PO SCH (10:10)
[2017-05-29 11:33] VITALS: BP 130/84
--- NOTE | 2017-05-29 22:53 | DS ---
CC: Dr. Romero Francis; Dr. Loyda Calvert * DISCHARGE SUMMARY: DATE OF ADMISSION: 05/27/17. DATE OF DISCHARGE: 05/29/17. ATTENDING SURGEON: Dr. Toño Loaiza * (EFRAIN Iniguez dictating). HOSPITAL COURSE: Please refer to admission history and physical and operative note for specific details. Briefly, the patient was admitted on 05/27/17 with abdominal pain with workup that was consistent with acalculous cholecystitis. The patient was treated with IV antibiotics initially and then was taken to the operating room by Dr. Loaiza on 05/28/17, at which time she underwent laparoscopic cholecystectomy. Surgery was otherwise uneventful and as of the morning of discharge, she is doing reasonably well in terms of pain control and oral intake though has not yet had any oral pain medications. She has been seen and followed in consult by Dr. Romero Francis, particularly for management of her endocrine disorders and specifically her serum calcium. As of the morning of discharge, she is afebrile and her vital signs are stable. She is not experiencing any circumoral tingling or carpopedal spasm. PHYSICAL EXAMINATION: She does have a positive twitch on Ch[place]ek sign. Heart : Regular rate and rhythm. Lungs: Clear to auscultation. Abdomen: Laparoscopic incision site is clean with minimal drainage on the umbilical incision site only. Abdomen is soft, with incisional tenderness as would be expected. PLAN: Serum calcium this morning was 6.4. The patient is scheduled to receive additional IV calcium gluconate and then she will continue calcium carbonate 3 g p.o. b.i.d. at least for the next 2 days. She will also double her hydrocortisone dose for stress dosing for 2 days and then resume usual dosing. She will contact Dr. Francis's office for any problems related to her endocrinopathies and specifically symptoms of hypocalcemia. She will otherwise return for followup with our office on 06/05/17. A prescription was given for Percocet and [facility] registry checked. EFRAIN INIGUEZ [id number]/[facility] #: [id number] [facility]
[2017-05-30] MEDS ORDERED: Levothyroxine TAB* 137 MCG TAB PO SCH (06:00)
== END 2017-05-29 12:30 | disposition home or self-care (01) | DRG 263 ==
LOC: ED 15:14 → SSU 21:14 → INTOOBSV 21:14
PROVIDERS: ADMIT Hospitalist; ATTEND Surgery
DX: K81.0 Acute cholecystitis (principal); R16.0 Hepatomegaly, not elsewhere classified; Z87.891 Personal history of nicotine dependence; Z23 Encounter for immunization
CPT/HCPCS: 36415; 71046; 74177; 76705; 80048; 80053; 81003; 82140; 82330; 83605; 83735; 84484; 85025; 85730; 87040; 88304; 90471; 90686; 93005; 96365; 96375; 99285; A9270-GY; C1776; G0008; G0378; J0610; J0636; J1170; J1644; J1720; J1885; J2250; J2270; J2405; J2543; J2704; J2930; J3010; J3475; Q9967

== ENCOUNTER 2017-09-09 16:34 | Emergency (ER) | payer OTHER ==
[2017-09-09] MEDS ORDERED: Naproxen TAB* 250 MG PO ONE (17:27)
[2017-09-09] MEDS ORDERED: Ketorolac INJ* 60 MG/2 ML VIAL IM ONE (18:03)
[2017-09-09 19:00] VITALS: BP 106/84
--- NOTE | 2017-09-09 19:08 | ED ---
Adrian Flores Thomas, scribed for Douglas Arellano MD on 09/09/17 at 1747 . Complex/Multi-Sys Presentation - HPI Summary HPI Summary: The patient is a 42 year old female complaining of right-sided rib and chest wall pain that began five days ago but significantly worsened last night after she sneezed. The pain is worsened with inspiration. She took ibuprofen for the pain and she is also on Tramadol. Past medical history includes MEN2A. She is on daily hydrocortisone and fludrocortisone. - History Of Current Complaint Chief Complaint: EDChestWallPain Time Seen by Provider: 09/09/17 17:43 Hx Obtained From: Patient Onset/Duration: Lasting Days - 5, Still Present, Worse Since - last night Timing: Constant Severity Initially: Moderate Location: Pain At: - right-sided rib, chest wall pain Aggravating Factor(s): Movement, inspiration Alleviating Factor(s): None - Allergies/Home Medications Allergies/Adverse Reactions: Allergies Allergy/AdvReac Type Severity Reaction Status Date / Time metronidazole [From Flagyl] Allergy Intermediate Pain Verified 09/09/17 18:41 Home Medications: Home Medications Cyclobenzaprine TAB* [Flexeril 10 MG TAB*] 5 mg PO BEDTIME PRN 09/09/17 [ History Confirmed 09/09/17] PMH/Surg Hx/FS Hx/Imm Hx Endocrine/Hematology History: Reports: Hx Thyroid Disease, Other Endocrine/ Hematological Disorders - pheochromocytoma, multiple endocrine neoplasia type 2a Denies: Hx Diabetes, Hx Anemia Cardiovascular History: Denies: Hx Congestive Heart Failure, Hx Hypertension, Hx Pacemaker/ICD Respiratory History: Denies: Hx Asthma GI History: Reports: Other GI Disorders - Hx of gastroenteritis Denies: Hx Crohn's Disease, Hx Diverticulosis, Hx Gall Bladder Disease, Hx Gastroesophageal Reflux Disease, Hx Gastrointestinal Bleed, Hx Irritable Bowel, Hx Jaundice, Hx Ulcer History: Denies: Hx Acute Renal Failure, Hx Dialysis, Hx Kidney Infection, Hx Kidney Stones, Hx Renal Disease Musculoskeletal History: Reports: Hx Back Problems - herniated discs Denies: Hx Arthritis, Hx Osteoporosis, Hx Scoliosis Sensory History: Reports: Hx Contacts or Glasses Denies: Hx Hearing Aid Opthamlomology History: Reports: Hx Contacts or Glasses Neurological History: Denies: Hx Headaches, Hx Migraine, Hx Seizures Psychiatric History: Reports: Hx Depression Denies: Hx Anxiety, Hx Panic Disorder - Cancer History Cancer Type, Location and Year: thyroid, age 23. multi endocrine neoplasia type 2a,(MEN2A), age 24 Hx Chemotherapy: No Hx Radiation Therapy: No - Surgical History Surgery Procedure, Year, and Place: . thyroidectomy. parathyroidectomy. left and right adrenal gland removed. lymph node dissections. right knee surgery. cholecystectomy Hx Anesthesia Reactions: No - Immunization History Date of Tetanus Vaccine: PT STATES UNSURE Date of Influenza Vaccine: Fall 2014 Infectious Disease History: No Infectious Disease History: Reports: Hx Clostridium Difficile Denies: Hx Hepatitis, Hx of Known/Suspected MRSA, Hx Shingles, Hx Tuberculosis, Traveled Outside the [place] in Last 30 Days - Family History Known Family History: Positive: Other - multiple endocrine neoplasia type 2a ( mother) Negative: Cardiac Disease, Hypertension, Diabetes - Social History Alcohol Use: None Hx Substance Use: No Substance Use Type: Reports: None Hx Tobacco Use: Yes Smoking Status (MU): Former Smoker Type: Cigarettes Have You Smoked in the Last Year: No Review of Systems Negative: Fever Positive: Other - Right-sided rib, chest wall pain All Other Systems Reviewed And Are Negative: Yes Physical Exam - Summary Physical Exam Summary: Appearance: Well appearing, no pain distress Skin: warm, dry, reflects adequate perfusion Head/face: normal Eyes: EOMI, ELVIRA ENT: normal Neck: supple, non-tender Respiratory: CTA, breath sounds present Cardiovascular: RRR, pulses symmetrical Chest: She has a lot of tenderness to her right lateral chest wall and posterior low ribs. Abdomen: non-tender, soft Bowel Sounds: present Musculoskeletal: strength/ROM intact Neuro: normal, sensory motor intact, A&Ox3 Triage Information Reviewed: Yes Vital Signs On Initial Exam: Initial Vitals Temp Pulse Resp BP Pulse Ox 98.3 F 91 16 129/87 98 09/09/17 16:35 09/09/17 16:35 09/09/17 16:35 09/09/17 16:35 09/09/17 16:35 Vital Signs Reviewed: Yes Procedures - Procedure Summary Procedure Summary: Intercostal Nerve Block: Re: for rib pain/chest wall pain Desc: cleaned the R lateral low rib area with alcohol. Injected just under the 8 -10th ribs separately just under the ribs with a total of 6cc of mixed 1% Lidocaine with epi and 0.5% bupivicaine thru a 25g 5/8 needle. Pain was relieved almost immediately. Aurea well, no complications. Diagnostics - Vital Signs Vital Signs Temp Pulse Resp BP Pulse Ox 09/09/17 16:35 98.3 F 91 16 129/87 98 - Laboratory Lab Statement: Any lab studies that have been ordered have been reviewed, and results considered in the medical decision making process. - Radiology Ribs with chest XR Xray Interpretation: No Acute Changes - No fracture, no pneumothorax, no infiltrate. Negative. Radiology Interpretation Completed By: ED Physician - Additional Comments Diagnostic Additional Comments: EKG: Obtained at 18:16 Normal sinus rhythm at 67 BPM. Short AL interval without delta wave. Nonspecific IVCD. Nonspecific T-wave abnormalities. Normal axis. (note thin body habitus) Re-Evaluation - Re-Evaluation First Eval Re-Evaluation Time: 18:02 Change: Improved Comment: Her pain is gone. Complex Multi-Symp Course/Dx Course Of Treatment: Pt given intercostal block with complete relief. EKG and CXR with ribs is neg for acute pathology. Pain remained relieved and discharged in good condition. - Diagnoses Differential Diagnoses/HQI/PQRI: Other - Pneumonia, GB dz, Rib fx, pleurisy. Provider Diagnoses: Intercostal muscle strain Discharge - Sign-Out/Discharge Documenting (check all that apply): Discharge - Discharge Plan Condition: Good Disposition: HOME Prescriptions: Cyclobenzaprine (NF) [Cyclobenzaprine 5 MG (NF)] 5 mg PO TID PRN #12 tab PRN Reason: muscle pain Patient Education Materials: Chest Wall Pain (ED) Referrals: Loyda Calvert MD [Primary Care Provider] - Additional Instructions: Ice to area. Deep breathing exercises. Return with fever, worse or other concerns. Ibuprofen as needed. Call your doctor in the morning for an appt. - Billing Disposition and Condition Condition: GOOD Disposition: HOME The documentation as recorded by the Adrian garcia Thomas accurately reflects the service I personally performed and the decisions made by Adan morin Kirk, MD.
--- NOTE | 2017-09-09 19:12 | RAD ---
INDICATION: Right rib pain. COMPARISON: Correlation is made with a prior chest x-ray study from May 27, 2017. TECHNIQUE: 2 views of the right ribs and dual-energy PA views of the chest were obtained. FINDINGS: No fracture or significant focal osseous abnormality is seen. The heart is within normal limits in size. The lungs are clear. There is no evidence for pneumothorax or pleural effusion. IMPRESSION: NO EVIDENCE FOR FRACTURE.
== END 2017-09-09 19:14 | disposition home or self-care (01) ==
LOC: ED 16:34
DX: S29.011A Strain of muscle and tendon of front wall of thorax, initial encounter (principal); Z87.891 Personal history of nicotine dependence; Z85.850 Personal history of malignant neoplasm of thyroid; E31.22 Multiple endocrine neoplasia [MEN] type IIA; X50.0XXA Overexertion from strenuous movement or load, initial encounter; X50.9XXA Other and unspecified overexertion or strenuous movements or postures, initial encounter; Y92.9 Unspecified place or not applicable; F32.9 Major depressive disorder, single episode, unspecified
CPT/HCPCS: 93005; 96372; 99283; J1885

== ENCOUNTER 2019-03-18 11:21 | Observation (INO) | payer OTHER ==
[~2019-03-18 11:21] MED LIST: Hydrocortisone INJ* 100 MG VIAL IV ONE
[2019-03-18] MEDS ORDERED: Ondansetron INJ* 2 MG/ML VIAL ONE (12:22)
[2019-03-18] MEDS ORDERED: Naproxen TAB* 250 MG ONE (12:22)
[2019-03-18] MEDS ORDERED: Scopolamine 1.5 mg* PATCH ONE (12:22)
[2019-03-18] MEDS ORDERED: LORazepam TAB(*) 1 MG ONE (12:23)
[2019-03-18] MEDS ORDERED: oxyCODONE SR TAB(*) 10 MG TAB.SR ONE (12:24)
[2019-03-18] MEDS ORDERED: Clindamycin 900 MG IVPREMIX(* 900 MG/50 ML SDV IV ONE (12:30)
[2019-03-18 12:43] LABS: ABS Basophils 0.1 10^3/ul (0-0.2); ABS Eosinophils 0.1 10^3/ul (0-0.6); ABS Lymphocytes 1.4 10^3/ul (1.0-4.8); ABS Monocytes 0.6 10^3/ul (0-0.8); Eosinophil % 1.1 %; Hematocrit 41 % (35-47); Hemoglobin 14.2 g/dL (12.0-16.0); Lymphocyte % 15.7 %; Mean Corpuscular HGB Conc 35 g/dL (31-36); Mean Corpuscular Hemoglobin 30 pg (27-31); Mean Corpuscular Volume 88 fL (80-97); Mean Platelet Volume 8.9 fL (7.4-10.4); Platelet Count 182 10^3/uL (150-450); Red Blood Count 4.71 10^6 /uL (3.70-4.87); Red Cell Distribution Width 16 % (10-15); White Blood Count 9.2 10^3/uL (3.5-10.8)
[2019-03-18 13:05] LABS: ALT 10 U/L (7-52); AST 16 U/L (13-39); Albumin 4.1 g/dL (3.2-5.2); Albumin/Globulin Ratio 1.5 (1-3); Alkaline Phosphatase 40 U/L (34-104); Anion Gap 8 mmol/L (2-11); BUN/Creatinine Ratio 14.7 (8-20); Blood Urea Nitrogen 10 mg/dL (6-24); CO2 Carbon Dioxide 29 mmol/L (22-32); Calcium 7.8 mg/dL (8.6-10.3); Chloride 101 mmol/L (101-111); EGFR African American 114.8 (>60); EGFR Non-African American 94.9 (>60); Globulin 2.7 g/dL (2-4); Glucose 95 mg/dL (70-100); Potassium 3.5 mmol/L (3.5-5.0); Sodium 138 mmol/L (135-145); Total Protein 6.8 g/dL (6.4-8.9)
[2019-03-18 13:11] LABS: HCG Pregnancy < 0.60 mIU/mL
[2019-03-18] MEDS ORDERED: Midazolam* 1 MG/ML 5 ML VIAL (5 MG) ONE (13:46)
[2019-03-18] MEDS ORDERED: fentaNYL* 50 MCG/ML 5 ML VIAL (250 MCG VIAL) ONE (13:46)
[2019-03-18] MEDS ORDERED: Iohexol 350 (CONTRAST) 200 ML MDV IV ONE (13:47)
[2019-03-18] MEDS ORDERED: Heparin 2 UNITS/ML IVPREMIX* 1,000 ML IV ONE ×2 (13:47→13:48)
[2019-03-18] MEDS ORDERED: Lidocaine 1% INJ* 10 MG/ML 30 ML SDV ONE (13:47)
[2019-03-18] MEDS ORDERED: Ketorolac INJ* 30 MG/ML 1 ML VIAL ONE ×2 (13:47→14:58)
[2019-03-18] MEDS ORDERED: nitroGLYCERIN DRIP* 25,000 MCG/250 ML BTL ONE (13:54)
[2019-03-18] MEDS ORDERED: Hydrocortisone INJ* 100 MG VIAL IV ONE ×2 (15:00→19:30)
[2019-03-18] MEDS ORDERED: HYDROmorphone INJ1* 1 MG/ML SYRINGE ONE (15:33)
[2019-03-18] MEDS ORDERED: HYDROmorphone PCA* 20 MG/20 ML PCA.SYRING PCA SCH (16:00)
[2019-03-18] MEDS ORDERED: HYDROmorphone PCA* 20 MG/20 ML PCA.SYRING ONE (16:12)
[2019-03-18] MEDS ORDERED: Potassium Chlor TAB* 20 MEQ TAB.ER PO ONE (17:27)
[2019-03-18] MEDS ORDERED: Acetaminophen TAB* 325 MG PO PRN (17:29)
[2019-03-18] MEDS: NS 0.9% 1000 ML** 1,000 ML IV SCH (18:25)
--- NOTE | 2019-03-18 19:15 | HP ---
CC: Dr. Loyda Calvert; Dr. Randolph* HISTORY AND PHYSICAL: DATE OF ADMISSION: 03/18/19 PROVIDER: Anamaria Dunn NP PRIMARY CARE PROVIDER: Dr. Loyda Calvert. ATTENDING PHYSICIAN WHILE IN THE HOSPITAL: Dr. Shawn Vela* (dictated by Anamaria Dunn NP) CHIEF COMPLAINT: Excessive vaginal bleeding. PROCEDURE: Uterine artery fibroid embolization. HISTORY OF PRESENT ILLNESS: Ms. Joaquin is a 44-year-old female with a history of embolization of hepatic metastasis; pheochromocytoma; medullary thyroid carcinoma; postop hypothyroidism; hypoparathyroidism; adrenal cortical hypofunction; multiple endocrine neoplasia, MEN type 2A; depression; history of neck pain, who presented to [facility] for elective uterine artery embolization due to excessive vaginal bleeding with Dr. Randolph. Please see dictated H and P from Dr. Randolph for complete details. In brief, the patient had ongoing excessive bleeding, therefore opted to have a uterine artery fibroid embolization with Dr. Randolph. In the preoperative area, the patient denies any recent fever, chills, chest pain, shortness of breath. Denies any nausea, vomiting, diarrhea. Denies any abdominal pain. Denies any gross hematuria or dysuria. Denies any focal weakness or sensory loss. Due to her history of MEN type 2A, hypoparathyroid, hypothyroid, adrenal cortical hypofunction and depression, Hospital Medicine was asked to help co-manage this patient during the hospitalization. PAST MEDICAL HISTORY: Significant for: 1. Embolization of hepatic metastasis. 2. Pheochromocytoma. 3. Medullary thyroid carcinoma. 4. Postop hypothyroid. 5. Hypoparathyroid. 6. Adrenal cortical hypofunction. 7. Multiple endocrine neoplasia type 2A. 8. Depression. 9. Neck pain. PAST SURGICAL HISTORY: 1. Thyroidectomy. 2. Parathyroidectomy. 3. Adrenalectomy. 4. . HOME MEDICATIONS: Include: 1. Levothyroxine 137 mcg p.o. daily. 2. Zofran 4 mg as needed for nausea and vomiting. 3. Oxycodone 10 mg p.o. q.4 hours as needed for pain. 4. Cyclobenzaprine 5 mg p.o. p.r.n. at bedtime for sleep. 5. Calcitriol 0.5 mg p.o. daily. 6. Escitalopram 20 mg p.o. daily. 7. Fludrocortisone 0.1 mg daily. 8. Hydrocortisone 5 mg tablets, 20 mg in the a.m., 10 mg in the p.m. 9. Tums 2000 mg p.o. daily. ALLERGIES: DEMEROL and FLAGYL. FAMILY HISTORY: There is no history of coronary artery disease, diabetes or cancer. Mother with a history of MEN type 2A as well as 2 brothers. SOCIAL HISTORY: The patient is a former smoker, quit smoking in 2009. Prior to that, she smoked for 11 years, half a pack a day. Denies any alcohol or illicit drug use. Surrogate decision maker in the event she is unable to make her own decisions is her , Lenin. She is a full code. REVIEW OF SYSTEMS: A 14-point review of systems was completed. All pertinent positives were mentioned in the HPI. PHYSICAL EXAMINATION GENERAL: At this time, Ms. Joaquin is drowsy, resting on the stretcher in the PACU. She is in no acute distress. VITAL SIGNS: Blood pressure 144/94, heart rate 60, respirations are 16, O2 saturation 98%, temperature was 97.7. HEENT: Head is atraumatic, normocephalic. Eyes: EOMs are intact. Sclerae anicteric and not pale. Oral mucosa appeared to be moist. NECK: Supple. LUNGS: Clear to auscultation bilaterally. No wheezes, rales, or rhonchi. CARDIAC: S1, S2. Regular rate and rhythm. No murmurs, rubs, or gallops. ABDOMEN: Soft and nontender. Bowel sounds are present x4. EXTREMITIES: She is able to move all 4 extremities. Pedal pulses are +2 bilaterally. Posterior tibial pulses are +2 bilaterally. Bilateral radial pulses are +2. Sensation is intact to all 4 extremities. DIAGNOSTIC STUDIES/LAB DATA: WBCs are 9.2, RBCs 4.71, hemoglobin 14.2, hematocrit is 41, platelet count is 182. Sodium 138, potassium 3.5, chloride 101, carbon dioxide was 29, anion gap was 8, BUN was 10, creatinine 0.68, glucose was 95, calcium 7.8. ASTs were 16, ALTs were 10, alkaline phosphatase was 40. Beta hCG quantitative was less than 0.60. ASSESSMENT AND PLAN: Ms. Joaquin is a 44-year-old female who presented to [facility] for an elective uterine artery fibroid embolization with Dr. Randolph who carries a history of MEN type 2A, pheochromocytoma, medullary thyroid carcinoma history , history of hypoparathyroidism, history of adrenal cortical hypofunction, depression and neck pain. She will be admitted under observation for: 1. Status post uterine fibroid artery embolization. Management per Dr. Randolph' s recommendations. She will have Toradol and pain management per Dr. Randolph. She will be on bedrest as per Dr. Randolph's recommendations. 2. Multiple endocrine neoplasia type 2A. She should continue on calcitriol 0.5 mg p.o. daily; Florinef 0.1 mg p.o. daily; hydrocortisone 20 mg in the morning, she should start this at 9 a.m. and 10 mg in the evening; and calcium 2000 mg p.o. daily. I will give her 1 amp of calcium gluconate due to her potassium being 7.8. She also received hydrocortisone IV 50 mg q.8 hours x2 doses due to her adrenal hypofunction and chronic steroid dependence. 3. Hypothyroid. She should continue on levothyroxine 137 mcg p.o. daily. 4. Depression. She should continue on escitalopram 20 mg p.o. daily. 5. FEN. She can have clears with advance to regular diet. 6. Code status. She is a full code. 7. DVT prophylaxis. I will place her on SCDs. TIME SPENT: Time spent on this admission was 60 minutes; greater than half that time was spent at the bedside reviewing the events leading thus far to her hospitalization, performing physical exam, and reviewing my plan of care. I have discussed this with my attending, Dr. Shawn Vela; he is in agreement with my plan. ANAMARIA DUNN, BOND ANALYST [id number]/[facility] #: [id number] MARYAM
[2019-03-18] MEDS: HYDROmorphone INJ1* 1 MG/ML SYRINGE IV SCH (19:29)
--- NOTE | 2019-03-18 19:47 | PN ---
Progress Note - Progress Note Date of Service: 03/18/19 SOAP: Subjective: "Cramping" pelvic rated 6/10. Denies nausea or emesis having taken clear liquids PO so far. Jez right groin pain. Objective: Selected Entries 03/18/19 19:18 Temperature 97.7 F Temperature Oral Source Pulse Rate 52 Respiratory 16 Rate Blood Pressure 125/75 (mmHg) Blood Pressure 91 Mean O2 Sat by Pulse 99 Oximetry Sleepy, but arousable to voice. NAD, AAO x 3 Abd is soft, minimally tender to palpation Right groin is soft, nontender Dressing is CDI 2+ pulses at right RECTANGULAR TANK COOPER, pop and DPA Assessment: 44 YOF s/p Uterine Fibroid Arterial Embolization with pain and nausea well controlled. Plan: 1. Head may be raised up to 45 degrees. 2. Ferreira DC at 2000 hours. 3. Routine post UFE IR orders for pain and nausea control submitted. 4. Patient DID NOT receive any IV steroids from IR. (Discussed with Anamaria Dunn NP).
[2019-03-18] MEDS ORDERED: Calcium Gluconate INJ* 1 GM in NS 0.9% 50 ML* 50 ML IVPB ONE (20:00)
[2019-03-18] MEDS ORDERED: Hydrocortisone TAB* 10 MG PO SCH (21:00)
[2019-03-18] MEDS ORDERED: Hydrocortisone INJ* 100 MG VIAL IV SCH (21:00)
[2019-03-18] MEDS: Ketorolac INJ* 15 MG/ML 1 ML VIAL IV PUSH SCH (21:32)
[2019-03-18] MEDS: Ondansetron INJ* 2 MG/ML VIAL IV SCH (21:37)
[2019-03-19] MEDS ORDERED: Hydrocortisone INJ* 100 MG VIAL IV ONE (02:00)
[2019-03-19] MEDS: Ketorolac INJ* 15 MG/ML 1 ML VIAL IV PUSH SCH (03:09)
[2019-03-19] MEDS: Ondansetron INJ* 2 MG/ML VIAL IV SCH (03:10)
[2019-03-19] MEDS: NS 0.9% 1000 ML** 1,000 ML IV SCH (05:30)
[2019-03-19 05:55] LABS: BUN/Creatinine Ratio 21.5 (8-20); Calcium 7.2 mg/dL (8.6-10.3); EGFR African American 120.9 (>60); Potassium 4.4 mmol/L (3.5-5.0)
[2019-03-19] MEDS ORDERED: Levothyroxine TAB* 137 MCG TAB PO SCH (06:00)
--- NOTE | 2019-03-19 08:36 | PN ---
Progress Note - Progress Note Date of Service: 03/19/19 SOAP: Subjective: "Crampy" pelvic pain rated at 6/10. No nausea or emesis. Has drank clears and coffee. No solid food yet. + Void. Objective: Selected Entries 03/19/19 07:57 Temperature 97.9 F Temperature Oral Source Pulse Rate 65 Respiratory 16 Rate Blood Pressure 98/68 (mmHg) Blood Pressure 78 Mean O2 Sat by Pulse 98 Oximetry Patient on Room No Air NAD, AAO x 3 Abdomen is soft and minimally tender to deep palpation Right groin soft, nontender Dressing clean and dry 2+ pulses in RLE Assessment: 44 YOF POD #1 s/p UFE. Pain and nausea well controlled. Plan: 1. Transition IV to PO. 2. Encourage diet and ambulation. 3. Anticipate DC to home. 4. Outpatient medications will be as follows: Toradol 10 mg PO Q 6 hours x 3 days (Dispense #15 with one refill) AFTER Toradol is complete: Naprosyn 225 mg PO Q 8 hours for 3-5 days Roland 5/325, take 1 or 2 tablets by mouth Q 6 hours PRN breakthrough pain ( Dispense #40) Zofran 4 mg PO Q 6 hours x 7 days (Dispense #30 with one refill) Scopolamine 1.5 mg transdermal to mastoid process. On 03/21/19 at 900 AM, remove current patch, replace with new patch and wear x 3 days. Drink one cup of laxative tea daily (For example, "Smooth Move") for one week.
[2019-03-19] MEDS ORDERED: HYDROcodone/ACETAMIN 5-325 MG* 1 TAB PO PRN (08:37)
[2019-03-19] MEDS ORDERED: Ondansetron ODT TAB* 4 MG PO SCH (09:00)
[2019-03-19] MEDS ORDERED: ARIPiprazole TAB* 5 MG PO SCH (09:00)
[2019-03-19] MEDS ORDERED: Calcium Carbonate CHEW TAB* 500 MG (TUMS) PO SCH (09:00)
[2019-03-19] MEDS ORDERED: Ketorolac TAB * 10 MG TAB PO SCH (09:00)
[2019-03-19] MEDS ORDERED: Hydrocortisone TAB* 10 MG PO SCH ×2 (09:00→21:00)
[2019-03-19] MEDS ORDERED: Escitalopram * 10 MG TAB PO SCH (09:00)
[2019-03-19] MEDS ORDERED: Fludrocortisone Acetate TAB* 0.1 MG PO SCH (09:00)
[2019-03-19 11:58] VITALS: BP 101/65
--- NOTE | 2019-03-20 00:16 | DS ---
CC: Dr. Loyda Calvert; Dr. Randolph * DISCHARGE SUMMARY: DATE OF ADMISSION: 03/18/19 DATE OF DISCHARGE: 03/19/19 PRIMARY CARE PROVIDER: Dr. Loyda Calvert. MY ATTENDING FOR THIS DISCHARGE: Dr. Vela.* (DICTATED BY PAPO TORRES NP) HOSPITAL COURSE: Please refer to admitting H and P on 03/18/19, but in short, Ms. Joaquin is a 44-year-old female with a history of embolization of hepatic metastases, pheochromocytoma, medullary thyroid carcinoma, hypoparathyroidism, hypothyroidism, adrenal cortical hypofunction; multiple endocrine neoplasia, MEN type 2A; depression; and neck pain, who presented to [facility] for an elective uterine artery embolization. The patient underwent that procedure on 03/18/19. Per the procedure notes, it was an uneventful procedure. The patient recovered very well and had no acute events. Her pain was managed with Dilaudid [employer] pump and in postprocedure period she did have some cramping and nausea, which was effectively managed with antiemetics. She was weaned off the [employer] pump and given no oral pain medication and again continued on antiemetics. On the morning of 03/19/19, she was cleared for discharge by Dr. Randolph to home. It should be noted that prior to her procedure , she was given stress dose steroids given her history of MEN type 2 A and her steroid dependence. She did have somewhat soft blood pressures initially, but her blood pressure immediately normalized in the postprocedure period and she exhibited no hemodynamic instability. Again, the patient was cleared for discharge on 03/19/[address] Randolph. Upon my examination today, the patient denies any fever, fatigue or chills. No shortness of breath or chest pain. She does have some mild abdominal cramping. No nausea or vomiting. No arthralgias or myalgias and no further constitutional complaints. DISCHARGE DIAGNOSES: 1. Status post uterine fibroid artery embolization. 2. History of multiple endocrine neoplasia type 2A. 3. Hypothyroidism, surgically induced. 4. History of depression. MEDICATIONS FOR DISCHARGE: Include: 1. Hydrocortisone 20 mg in the morning. 2. Cyclobenzaprine 5 mg in the evening as needed. 3. Hydrocortisone 10 mg at bedtime. 4. Florinef 0.1 mg p.o. daily. 5. Lexapro 10 mg p.o. daily. 6. Synthroid 137 mcg p.o. in the morning. 7. Tramadol 50 mg p.o. q.6 hours as needed. 8. Calcium carbonate 1500 mg p.o. daily. 9. Calcitriol 2 caps p.o. daily. 10. Oxycodone 30 mg p.o. daily. 11. Abilify 10 mg p.o. daily. 12. Naproxen 220 mg p.o. b.i.d. as needed. 13. Scopolamine 1.5 mg patch transdermal q.72 hours to start on Friday. Remove old patch before applying new. 14. Zofran 4 mg 1 tablet p.o. q.6 hours as needed for nausea and vomiting. 15. Ketoralac 10 mg p.o. q.6 hours for pain. 16. Tabor 1 tablet p.o. q.6 hours for breakthrough pain, not to exceed 4 times in a 24-hour period. PHYSICAL EXAMINATION: Her physical exam reveals a well-appearing female in no acute distress. Vital signs are blood pressure 101/65, heart rate 71, respiratory rate 16, O2 saturation 99% on room air with a temperature of 98. HEENT: The patient is atraumatic, normocephalic. PERRLA. Nonicteric sclerae. Oral mucosa is moist. Dentition is somewhat poor. Tongue is midline. Neck is supple and nontender. No JVD noted. No carotid bruits auscultated. Cardiovascular: S1, S2 present. No murmurs, gallops or rubs noted. Rate and rhythm are regular. Abdomen is soft, somewhat tender. Positive bowel sounds in all 4 quadrants. No hepatomegaly noted. Her arterial puncture site dressing is clean, dry and intact. No erythema or hematoma noted. Musculoskeletal: There is no clubbing, no cyanosis, no edema. She has +2 distal pulses palpable. Gross motor and sensation are intact. Full range of motion and steady gait. Neurologic: Grossly intact with no focal deficits. Psychiatric: Cooperative and appropriate. LABORATORY DATA: WBCs 9.2, RBCs 4.71, hemoglobin 14.2, hematocrit 41, platelets 182,000. Sodium 135, potassium 4.4, chloride 105, CO2 of 23, BUN 14, creatinine 0.65, GFR 100, glucose 105, calcium 7.2. DISPOSITION: The patient was discharged to home. She is in stable condition. FOLLOWUP: The patient is instructed to follow up with her primary care provider , Dr. Loyda Calvert in the next [address] Randolph whose office will be calling her for a followup appointment. The patient was discharged in stable condition. All questions were answered. The patient stated her understanding of her discharge instructions and followups. TIME SPENT: Thirty five minutes on discharge planning. PAPO TORRES, ROLAND [id number]/CPS #: [id number] MARYAM
== END 2019-03-19 13:45 | disposition home or self-care (01) ==
LOC: CHICATH 11:21 → SSU 17:29
PROVIDERS: ADMIT Internal Medicine; ATTEND Internal Medicine
DX: N92.4 Excessive bleeding in the premenopausal period (principal); D25.9 Leiomyoma of uterus, unspecified; E27.40 Unspecified adrenocortical insufficiency; D35.00 Benign neoplasm of unspecified adrenal gland; C73 Malignant neoplasm of thyroid gland; E03.9 Hypothyroidism, unspecified; F32.9 Major depressive disorder, single episode, unspecified; M54.2 Cervicalgia; Z79.899 Other long term (current) drug therapy; Z87.891 Personal history of nicotine dependence
CPT/HCPCS: 36415; 37243; 75736; 76937; 80048; 80053; 84702; 85025; 86850; 86900; 86901; 96365; 96375; 96376; 99156; 99157; A9270-GY; C1769; C1884; C1887; G0378; J0610; J1170; J1644; J1720; J1885; J2250; J2405; J3010